=== PATIENT | female | born 1945 | race Caucasian/White ===

== ENCOUNTER 2025-08-14 22:19 | Emergency (ER) | payer MEDICARE, SELFPAY ==
--- OUTSIDE RECORDS SUMMARY | 2019-11-22 09:40 | XMS_ITS | Continuity of Care Document ---
Author Organization [facility] Address [address] [place] [address] Phone Care Team Providers Care Water Purifier Name Role Phone Jb Jain MD Unavailable Unavailable Allergies, Adverse Reactions, Alerts Substance Reaction Status Criticality No Known Drug Allergies Active No I nformation Medications Medication Instructions Dosage Effective Dates (start - stop) Status Comments OS-JAYSHREE 500-VIT D3 (unknown strength) qd Not Available - Active Lipitor 20 mg tablet once daily - Active amlodipine 5 mg tablet qd - Active meloxicam 7.5 mg tablet qd - Active Boniva 150 mg tablet once weekly - Active biotin 2,500 mcg capsule qd - Active omeprazole 20 mg capsule,delayed release BID - Active Alden 3-6-9 1,200 mg capsule qd - Active Tirosint 112 mcg capsule take 1 capsule by oral route every day 112 MCG - Active folic acid 1 mg tablet take 1 tablet by oral route every day 1 MG - Active Multivitamin 50 Plus tablet qd - Active Vitamin B-12 1,000 mcg tablet qd - Active venlafaxine 75 mg tablet take 1 tablet by oral route every day with food 75 MG - Active losartan 100 mg tablet take 1 tablet by oral route every day 100 MG - Active Procedures Procedure Date Intravitreal Injection Of Phamacologic A gent Ophthal DX Image Post Retina I And R Uni Or Bi Eylea 1mg OFFICE/OUTPATIENT VISIT, EST Intravitreal Injection Of Phamacologic A gent Ophthal DX Image Post Retina I And R Uni Or Bi Eylea 1mg Eye Exam Established Patient Intermediat e Intravitreal Injection Of Phamacologic A gent Ophthal DX Image Post Retina I And R Uni Or Bi Eylea 1mg Intravitreal Injection Of Phamacologic A gent Ophthal DX Image Post Retina I And R Uni Or Bi Eye Exam Established Patient Comprehensi ve 1 Or More Visits Eylea Sample Drug Intravitreal Injection Of Phamacologic A gent Ophthal DX Image Post Retina I And R Uni Or Bi Eylea 1mg Intravitreal Injection OCT Medical Eye Exam, Est Tx EYE SERVICE OR PROCEDURE Intravitreal Injection OCT Eylea Aflibercept Intravitreal Injection OCT Eylea Aflibercept Medical Eye Exam, Established 9 Intravitreal Injection OCT Eylea Aflibercept Fluorescein Angiography Intravitreal Injection Fundus Photos Eylea Aflibercept Medical Eye Exam, Est With Tx 8 Intravitreal Injection OCT Eylea Aflibercept Intravitreal Injection OCT Eylea Aflibercept Intravitreal Injection OCT Eylea Aflibercept Medical Eye Exam, Established 8 Intravitreal Injection OCT Eylea Aflibercept Fluorescein Angiography Intravitreal Injection Fundus Photos Eylea Aflibercept Medical Eye Exam, Est With Tx 8 Intravitreal Injection OCT Eylea Aflibercept Intravitreal Injection OCT Eylea Aflibercept Medical Eye Exam, Est With Tx 7 Intravitreal Injection OCT Eylea Aflibercept Medical Eye Exam, Established 7 Intravitreal Injection Ultrasound B OCT Eylea Aflibercept Medical Eye Exam, Established Intravitreal Injection Ultrasound B OCT Eylea Aflibercept Medical Eye Exam, Established 7 Intravitreal Injection Ultrasound B OCT Medical Eye Exam, Established With Tx EYE SERVICE OR PROCEDURE Intravitreal Injection Ultrasound B OCT Eylea Aflibercept Medical Eye Exam, Established 6 Intravitreal Injection Ultrasound B OCT Eylea Aflibercept Medical Eye Exam, Established With Tx No Intravitreal Injection OCT Eylea Aflibercept Intravitreal Injection OCT Eylea Aflibercept Medical Eye Exam, Established 6 Intravitreal Injection OCT Eylea Aflibercept Intravitreal Injection Fluorescein Angiography Fluorescein Angiography Fundus Photos Lucentis Ranibizumab .5 Medical Eye Exam, Established With Tx Ju Intravitreal Injection Intravitreal Injection Eylea Aflibercept OCT Intravitreal Injection Eylea Aflibercept OCT OCT Intravitreal Injection Eylea Aflibercept Intravitreal Injection OCT Eylea Aflibercept Medical Eye Exam, Established With Tx Ma Intravitreal Injection Fluorescein Angiography Fluorescein Angiography Fundus Photos Eylea Aflibercept Medical Eye Exam, Established With Tx No Fluorescein Angiography Oct Fluorescein Angiography Oct Fundus Photos Oct Est FU Visit High Oct OCT Medical Eye Exam, Established 5 OCT Office Visit, Moderate Intravitreal Injection OCT Eylea Aflibercept Intravitreal Injection OCT Eylea Aflibercept Medical Eye Exam, Established With Tx Ma Intravitreal Injection OCT Eylea Aflibercept Intravitreal Injection Eylea Aflibercept OCT Office Visit, Low Intravitreal Injection Oct Eylea Aflibercept Oct OCT Intravitreal Injection OCT Eylea Aflibercept OCT Intravitreal Injection Eylea Aflibercept Office Visit, Low ARMD Dilated Exam [facility] Counseling OCT Intravitreal Injection Eylea Aflibercept OCT Intravitreal Injection Eylea Aflibercept OCT Intravitreal Injection Eylea Aflibercept OCT Intravitreal Injection Eylea Aflibercept Office Visit, Low ARMD Dilated Exam [facility] Counseling OCT Intravitreal Injection Eylea Aflibercept OCT Intravitreal Injection Luc[facility]is Ranibizumab Office Visit, Low ARMD Dilated Exam [facility] Counseling OCT Intravitreal Injection Lucentis Ranibizumab OCT Intravitreal Injection Lucentis Ranibizumab Office Visit, Moderate ARMD Dilated Exam [facility] Counseling Fluorscein Angiography Fluorscein Angiography Fundus Photos Intravitreal Injection Lucentis Ranibizumab Office Visit, Low ARMD Dilated Exam [facility] Counseling OCT Intravitreal Injection Lucentis Ranibizumab Office Visit, Low ARMD Dilated Exam [facility] Counseling OCT Intravitreal Injection Lucentis Ranibizumab Office Visit, Moderate ARMD Dilated Exam [facility] Counseling OCT Intravitreal Injection Lucentis Ranibizumab Injection 13 Office Visit, Low ARMD Dilated Exam [facility] Counseling OCT Intravitreal Injection Lucentis Ranibizumab Injection 13 Office Visit, Low ARMD Dilated Exam [facility] Counseling OCT Intravitreal Injection Lucentis Ranibizumab Injection 13 OCT Intravitreal Injection Unclassified biologics Office Visit, Low ARMD Dilated Exam [facility] Counseling OCT Intravitreal Injection Unclassified biologics Office Visit, Moderate ARMD Dilated Exam [facility] Counseling OCT OCT Intravitreal Injection Unclassified biologics Office Visit, Low ARMD Dilated Exam [facility] Counseling OCT Intravitreal Injection Unclassified biologics Office Visit, Moderate ARMD Dilated Exam [facility] Counseling Fluorscein Angiography Fluorscein Angiography Fundus Photos Intravitreal Injection Unclassified biologics Advance Directives Directive Yes / No Effective Date File Name No Information Encounters Encounter Description Practice Location Reason(s) For Visit Diagnoses Date Provider Providers Copied on Encounter OFFICE/OUTPA TIENT VISIT, EST [facility], [address] [place], [address], tel: [phone] RVA Purdys macular degeneration (chief complaint)sta ble vision (chief complaint) Exdtve age-rel mclr degn, right eye, with actv chrdl neovasExudative age-rel mclr degn, left eye, with inactive scarOther retinal detachmentAge-rela harmony nuclear cataract, bilateralHTN Nov- 0 Cristobal Muhammad. [address], [address], [place], [place], [id number] , [place]. tel: [phone] Referring Provider: Jb Chavez, [address], [place], [address] . tel:[phone] [facility] Physician s, [address] [place], [address], [place] tel: [phone] RVA Augusto macular degeneration (chief complaint)flu ctuating vision (chief complaint) Exdtve age-rel mclr degn, right eye, with actv chrdl neovasOther retinal detachmentAge-rela harmony nuclear cataract, bilateralExudative age-rel mclr degn, left eye, with inactive scarHTN Dec-0 9 Cristobal Muhammad. [address], [address], [place], [place], [id number] , [place]. [phone] Referring Provider: Jb Chavez, [address], [place], [address] . tel:[phone] [facility], [address] [place], [address], [place] tel:[phone] RVA Augusto macular degeneration (chief complaint)imp rovement in floater (chief complaint) Exdtve age-rel mclr degn, right eye, with actv chrdl neovasOther retinal detachmentExudativ e age-rel mclr degn, left eye, with inactive scarAge-related nuclear cataract, bilateral Orgel Susan. [address], [address], [place], [place], [address] , [place]. tel:[phone] Referring Provider: Susan Chavez, [address], [place], [address] . tel:[phone] [facility], [address] [place], [address], [place] tel:[phone] RVA Purdys macular degeneration followup (chief complaint)sta ble (chief complaint) Exdtve age-rel mclr degn, right eye, with actv chrdl neovasOther retinal detachmentExudativ e age-rel mclr degn, left eye, with inactive scarAge-related nuclear cataract, bilateral 9 Orgel Susan. [address], [address], [place], [place], [address] , [place]. tel:[phone] Referring Provider: Susan Chavez, [address], [place], [address] . tel:[phone] [facility], [address] [place], [address], [place] tel:[phone] RVA Augusto macular degeneration (chief complaint)sta ble vision (chief complaint) Exdtve age-rel mclr degn, right eye, with actv chrdl neovasExudative age-rel mclr degn, left eye, with inactive scarOther retinal detachmentAge-rela harmony nuclear cataract, bilateral Napoleon- 9 Orgel Susan. [address], [address], [place], [place], [address] , [place]. tel:[phone] Referring Provider: Emir Smallwood, [address] [place], [address]. tel:[phone] [facility] Physician s, [address] [place], [place], [facility], [place] tel:[phone] RVA Purdys macular degeneration (chief complaint) Exdtve age-rel mclr degn, right eye, with actv chrdl neovasExudative age-rel mclr degn, left eye, with inactive scarOther retinal detachmentAge-rela harmony nuclear cataract, bilateral Dec- 9 Orgel Susan. [address], [address], [place], [place], [id number] , [place]. tel:[phone] Referring Provider: Emir Smallwood, [address] [place], [address]. tel:[phone] [facility] Physician s, [address] [place], [place], [facility], [place] tel:[phone] RVA Purdys macular degeneration (chief complaint)sta ble vision (chief complaint) Exdtve age-rel mclr degn, right eye, with actv chrdl neovasExudative age-rel mclr degn, left eye, with inactive scarOther retinal detachmentAge-rela harmony nuclear cataract, bilateral Mar-0 9 Orgel Susan. [address], [address], [place], [place], [address] , [place]. tel:[phone] Referring Provider: Emir Smallwood, [address] [place], [address]. tel:[phone] [facility] Physician s, [address] [place], [place], [facility], [place] tel:[phone] RVA Augusto macular degeneration (chief complaint) Exdtve age-rel mclr degn, right eye, with actv chrdl neovasExudative age-rel mclr degn, left eye, with inactive scarOther retinal detachmentAge-rela harmony nuclear cataract, bilateral Rakesh-- 9 Orgel Susan. [address], [address], [place], [place], [address] , [place]. tel:[phone] Referring Provider: Emir Smallwood, [place], [address]. tel:[phone] [facility] Physician s, [address] [place], [address], [place] tel:[phone] RVA Purdys macular degeneration (chief complaint) Exudative age-rel mclr degn, left eye, with inactive scarExdtve age-rel mclr degn, right eye, with actv chrdl neovasOther retinal detachmentAge-rela harmony nuclear cataract, bilateral - 8 Orgel Susan. [address], [address], [place], [place], [address] , [place]. tel:[phone] Referring Provider: [place], [address]. tel:[phone] [facility] Physician s, [address] [place], [address], [place] tel:[phone] RVA Purdys macular degeneration (chief complaint) Exudative age-related macular degeneration, bilateral, with active choroidal neovascularization Other retinal detachmentAge-rela harmony nuclear cataract, bilateral Oct-0 8- 8 Orgel Susan. [address], [address], [place], [place], [address] , [place]. tel:[phone] Referring Provider: [place], [address]. tel:[phone] [facility] Physician s, [address] [place], [address], [place] tel:[phone] RVA Purdys macular degeneration (chief complaint)dec reased vision (chief complaint)HTN (chief complaint) Exudative age-related macular degeneration, bilateral, with active choroidal neovascularization Other retinal detachmentVitreous hemorrhage, left eyeAge-related nuclear cataract, bilateral 8 Orgel Susan. [address], [address], [place], [place], [address] , [place]. tel:[phone] Referring Provider: Susan Chavez, [address], [place], [address] . tel:[phone] [facility], [address] [place], [place], [facility], [place] tel:[phone] RVA Augusto macular degeneration (chief complaint)see ing floaters (chief complaint)Add itional Information (chief complaint) Exudative age-related macular degeneration, bilateral, with active choroidal neovascularization Other retinal detachmentVitreous hemorrhage, left eyeAge-related nuclear cataract, bilateral 8 Orgel Susan. [address], [address], [place], [place], [address] , [place]. [phone] Referring Provider: Susan Chavez [address], [place], [address] . tel:[phone] [facility], [address] [place], [place], [facility], [place] tel:[phone] RVA Purdys macular degeneration (chief complaint)joycelyn rry vision (chief complaint)Add itional Information (chief complaint) Exudative age-related macular degeneration, bilateral, with active choroidal neovascularization Vitreous hemorrhage, left eyeOther retinal detachmentAge-rela harmony nuclear cataract, bilateral 8 Orgel Susan. [address], [address], [place], [place], [address] , [place]. tel:[phone] Referring Provider: Susan Chavez [address], [place], [address] . tel:[phone] [facility], [address] [place], [place], [facility], [place] tel:[phone] RVA Purdys macular degeneration (chief complaint)emmett aters (chief complaint)shira udy vision (chief complaint) Exudative age-related macular degeneration, bilateral, with active choroidal neovascularization Vitreous hemorrhage, left eyeOther retinal detachmentSecondar y pigmentary degeneration, bilateralAge-relat ed nuclear cataract, bilateral Apr-0 8 Orgel Susan. [address], [address], [place], [place], [address] , [place]. tel:[phone] Referring Provider: Susan Chavez [address], [place], [address] . tel:[phone] [facility], [address], [place], [address], [place] [phone] MALA Casas macular degeneration (chief complaint)gri d changes (chief complaint)Add itional Information (chief complaint) Other retinal detachmentVitreous hemorrhage, left eyeExudative age-related macular degeneration, bilateral, with active choroidal neovascularization Secondary pigmentary degeneration, bilateralAge-relat ed nuclear cataract, bilateral 8 Orgel Susan. [address], [address], [place], [place], [address] , [place]. tel:[phone] Referring Provider: Susan Chavez, [address], [place], [address] . tel:[phone] [facility], [address], [place], [address], [place] [phone] MALA Casas other retinal detachment (chief complaint)has vision now from middle down (chief complaint)fla sh in upper left corner (chief complaint) Other retinal detachmentVitreous hemorrhage, left eyeExudative age-related macular degeneration, bilateral, with active choroidal neovascularization Secondary pigmentary degeneration, bilateralAge-relat ed nuclear cataract, bilateral 7 Orgel Susan. [address], [address], [place], [place], [address] , [place]. tel:[phone] Referring Provider: Susan Chavez [address], [place], [address] . tel:[phone] [facility], [address] [place], [address], [place] tel:[phone] RVA Purdys macular degeneration (chief complaint)joycelyn rry vision (chief complaint) Vitreous hemorrhage, left eyeExudative age-related macular degeneration, bilateral, with active choroidal neovascularization Secondary pigmentary degeneration, bilateralAge-relat ed nuclear cataract, bilateralOther retinal detachment Orgel Susan. [address], [address], [place], [place], [address] , [place]. tel:[phone] Referring Provider: Susan Chavez, [address], [place], [address] . tel:[phone] [facility], [address] [place], [address], [place] [phone] MALA Casas vitreous hemorrhage (chief complaint)rep orts she still has limited vision (chief complaint)den ies any vision changes (chief complaint) Vitreous hemorrhage, left eyeExudative age-related macular degeneration, bilateral, with active choroidal neovascularization Secondary pigmentary degeneration, bilateralAge-relat ed nuclear cataract, bilateralExdtve age-rel mclr degn, right eye, with actv chrdl neovas 7 Orgel Susan. [address], [place], [place], [address] , [place]. tel:[phone] Other Provider: Tatum Dailey, [address] [place] [address], [address]. tel:[phone] erring Provider: Susan Chavez, [address], [place], [address] . tel:[phone] [facility], [address] [place], [address], [place] tel:[phone] RVA Purdys macular degeneration (chief complaint)Add itional Information (chief complaint)no change in vision (chief complaint) Exudative age-related macular degeneration, bilateral, with active choroidal neovascularization Vitreous hemorrhage, left eyeSecondary pigmentary degeneration, bilateralAge-relat ed nuclear cataract, bilateral 7 Orgel Susan. [address], [place], [place], [address] , [place]. [phone] Referring Provider: Susan Chavez, [address], [place], [address] . tel:[phone] [facility], [address] [place], [place], [facility], [place] tel: [phone] RVA Purdys macular degeneration (chief complaint)den ies vision changes (chief complaint)Add itional Information (chief complaint) Exudative age-related macular degeneration, bilateral, with active choroidal neovascularization Vitreous hemorrhage, left eyeSecondary pigmentary degeneration, bilateralAge-relat ed nuclear cataract, bilateral 7 Orgel Susan. [address], [place], [place], [address] , [place]. [phone] Referring Provider: Susan Chavez, [address], [place], [address] . tel:[phone] [facility], [address] [place], [place], [facility], [place] tel: [phone] RVA Purdys macular degeneration (chief complaint)sta ble but decreased vision (chief complaint)Add itional Information (chief complaint) Exudative age-related macular degeneration, bilateral, with active choroidal neovascularization Vitreous hemorrhage, left eyeSecondary pigmentary degeneration, bilateralAge-relat ed nuclear cataract, bilateral 7 Orgel Susan. [address], [place], [place], [address] , [place]. [phone] Referring Provider: Susan Chavez [address], [place], [address] . tel:[phone] [facility], [address] [place], [address], [place] tel:[phone] RVA Purdys macular degeneration (chief complaint)joycelyn rry vision (chief complaint)add itional information (chief complaint) Vitreous hemorrhage, left eyeExudative age-related macular degeneration, bilateral, with active choroidal neovascularization Drusen (degenerative) of macula, bilateralSecondary pigmentary degeneration, bilateralAge-relat ed nuclear cataract, bilateralExdtve age-rel mclr degn, left eye, with actv chrdl neovas Dec-0 6 Orgel Susan. [address], [address], [place], [place], [address] , [place]. tel:[phone] Referring Provider: Susan Chavez, [address], [place], [address] . tel:[phone] [facility], [address] [place], [address], [place] tel: [phone] RVA Purdys macular degeneration (chief complaint)fabienne den vision loss (chief complaint)___ _ (chief complaint) Vitreous hemorrhage, left eyeDrusen (degenerative) of macula, bilateralSecondary pigmentary degeneration, bilateralAge-relat ed nuclear cataract, bilateralExudative age-related macular degeneration, bilateral, with active choroidal neovascularization Jul- 6 Orgel Susan. [address], [place], [place], [address] , [place]. tel:[phone] Other Provider: Tatum Dailey, [address] [place], [address]. tel:[phone] erring Provider: Susan Chavez, [address], [place], [address] . tel:[phone] [facility], [address] [place], [address], [place] tel:[phone] RVA Purdys macular degeneration (chief complaint)sta ble vision (chief complaint)blo od pressure reading (chief complaint) Exudative age-related macular degeneration, bilateral, with active choroidal neovascularization Oct-0 3-201 6 Orgel Susan. [address], [address], [place], [place], [address] , [place]. tel:[phone] Referring Provider: Susan Chavez, [address], [place], [address] . tel:[phone] [facility], [address] [place], [address], [place] [phone] RVA Purdys macular degeneration (chief complaint)emmett aters (chief complaint)Blo od pressure reading (chief complaint) Exudative age-related macular degenerationDrusen (degenerative) of macula, bilateralSecondary pigmentary degeneration, bilateralAge-relat ed nuclear cataract, bilateral May- 6 Orgel Susan. [address], [address], [place], [place], [address] , [place]. [phone] Referring Provider: Susan Chavez, [address], [place], [address] . tel:[phone] [facility], [address] [place], [address], [place] [phone] RVA Purdys macular degeneration (chief complaint)sta ble vision (chief complaint)___ (chief complaint) Exudative age-related macular degenerationDrusen (degenerative) of macula, bilateralSecondary pigmentary degeneration, bilateralAge-relat ed nuclear cataract, bilateral Apr- 6 Orgel Susan. [address], [place], [place], [address] , [place]. tel:[phone] Referring Provider: Susan Chavez, [address], [place], [address] . tel:[phone] [facility], [address] [place], [address], [place] [phone] RVA Augusto macular degeneration (chief complaint)dec reased vision (chief complaint) Exudative age-related macular degenerationDrusen (degenerative) of macula, bilateralSecondary pigmentary degeneration, bilateralAge-relat ed nuclear cataract, bilateral Feb- 6 Orgel Susan. [address], [place], [place], [address] , [place]. tel:[phone] Referring Provider: Susan Chavez, [address], [place], [address] . tel:[phone] [facility], [address] [place], [address], [place] tel:[phone] MALA Casas ARMD (chief complaint)sta ble vision (chief complaint)Blo od pressure reading (chief complaint) Exudative age-related macular degeneration January- 9 6 Orgel Susan. [address], [place], [place], [address] , [place]. tel:[phone] Referring Provider: Susan Chavez, [address], [place], [address] . tel:[phone] [facility], [address] [place], [address], [place] tel:[phone] MALA Casas macular degeneration (chief complaint)rep orts no vision changes (chief complaint)172 /95 (chief complaint) Exudative age-related macular degenerationDrusen (degenerative) of macula, bilateralSecondary pigmentary degeneration, bilateralAge-relat ed nuclear cataract, bilateral January-0 2 6 Orgel Susan. [address], [place], [place], [address] , [place]. tel:[phone] Referring Provider: Susan Chavez, [address], [place], [address] . tel:[phone] [facility], [address] [place], [address], [place] tel:[phone] EVERARDOA Augusto ARMD (chief complaint)inc rease in vision (chief complaint)sta ble vision (chief complaint) Exudative age-related macular degeneration Apr-0 6 Orgel Suasn. [address], [place], [place], [address] , [place]. tel:[phone] Referring Provider: Susan Chavez [address], [place], [address] . tel:[phone] [facility], [address] [place], [place], [facility], [place] tel:[phone] RVA Purdys macular degeneration (chief complaint)dec reased vision (chief complaint)in office vitals (chief complaint) Exudative age-related macular degenerationDrusen (degenerative) of macula, bilateralSecondary pigmentary degeneration, bilateralAge-relat ed nuclear cataract, bilateral Mar-2 6 Orgel Susan. [address], [place], [place], [address] , [place]. tel:[phone] Referring Provider: Susan Chavez [address], [place], [address] . tel:[phone] CVP Physician s, [address] [place] [place], [facility], [place] tel:[phone] RVA Augusto vision problems (chief complaint)joycelyn rry vision (chief complaint)dis tortion in vision (chief complaint) Exudative age-related macular degenerationSecond opal pigmentary degeneration, bilateralAge-relat ed nuclear cataract, bilateralDrusen (degenerative) of macula, bilateral Nov-2 5 Orgel Susan. [address], [address], [place], [place], [address] , [place]. tel:[phone] Referring Provider: Susan Chavez [address], [place], [address] . tel:[phone] Est FU Visit High CVP Physician s, [address] [place], [address], [place] tel:[phone] RVA Purdys macular degeneration (chief complaint)veronica oing distortion (chief complaint) Exudative age-related macular degenerationRetina l neovascularization , unspecified, right eyeVitreous degeneration, bilateralSecondary pigmentary degeneration, bilateralAge-relat ed nuclear cataract, bilateral Oct-1 5 Orgel Susan. [address], [place], [place], [address] , [place]. tel:[phone] Referring Provider: Susan Chavez, [address], [place], [address] . tel:[phone] CVP Physician s, [address] [facility], [place], [address], [place] tel:[phone] RVA Augusto ARMD (chief complaint)sta ble vision (chief complaint)Blo od pressure reading (chief complaint) Exudative macular degeneration of retinaRetinal neovascularization nosSecondary pigmentary degeneration of retinaVitreous degenerationLens replaced by other means Orgel Susan. [address], [place], [place], [address] , [place]. [phone] Referring Provider: Susan Chavez [address], [place], [address] . tel:[phone] Office Visit, Moderate CVP Physician s, [address] [facility], [place], [address], [place] tel:[phone] RVA Augusto macular degeneration (chief complaint)BP 161/100 (chief complaint)den ies vision changes (chief complaint) Exudative macular degeneration of retinaRetinal neovascularization nosSecondary pigmentary degeneration of retinaVitreous degenerationLens replaced by other means 5 Orgel Susan. [address], [place], [place], [address] , [place]. tel:[phone] Specialist : Osvaldo Andres, [address], [place], [address]. tel:[phone] erring Provider: Susan hCavez [address] , [place], [address] . tel:[phone] CVP Physician s, [address] [place], [address], [place] tel:[phone] RVA Purdys macular degeneration (chief complaint)no changes (chief complaint)___ (chief complaint) Exudative macular degeneration of retina Nov-0 9- 5 Orgel Susan. [address], [place], [place], [address] , [place]. [phone] Referring Provider: Susan Chavez, [address] , [place], [address] . tel:[phone] CVP Physician s, [address] [place], [facility], [place] [phone] RVA Augusto macular degeneration (chief complaint)sta ble vision with injections (chief complaint) Exudative macular degeneration of retinaRetinal neovascularization nosSecondary pigmentary degeneration of retinaVitreous degenerationLens replaced by other means Nov-0 2- 5 Orgel Susan. [address], [address] , [place], [place], [address] , [place]. [phone] Referring Provider: Susan Chavez [address], [place], [address] . tel:[phone] CVP Physician s, [address] [place], [facility], [place] tel:[phone] RVA Augusto ARMD (chief complaint)sta ble vision (chief complaint)Blo od pressure reading (chief complaint) Exudative macular degeneration of retina Aug-0 8 4 Orgel Susan. [address], [place], [place], [address] , [place]. tel:[phone] Referring Provider: Susan Chavez, [address], [place], [address] . tel:[phone] Office Visit, Low CVP Physician s, [address] [place], [address], [place] tel: [phone] RVA Purdys ARMD (chief complaint)inc rease in vision (chief complaint)Blo od pressure reading (chief complaint) Exudative macular degeneration of retinaRetinal neovascularization nosSecondary pigmentary degeneration of retinaVitreous degenerationLens replaced by other means Dec-0 - 4 Orgel Susan. [address], [place], [place], [address] , [place]. tel: [phone] Referring Provider: Susan Chavez [address], [place], [address] . tel:[phone] CVP Physician s, [address] [place], [facility], [place] tel:[phone] RVA Purdys ARMD (chief complaint)emmett aters (chief complaint)Blo od pressure reading (chief complaint) Exudative macular degeneration of retina Oct-2 4 Orgel Susan. [address], [place], [place], [address] , [place]. tel: [phone] Referring Provider: Susan Chavez [address], [place], [address] . tel:[phone] CVP Physician s, [address] [place], [facility], [place] tel:[phone] RVA Purdys Exudative macular degeneration of retinaRetinal neovascularization nosSecondary pigmentary degeneration of retinaVitreous degenerationLens replaced by other means Oct-1 - 4 Orgel Susan. [address], [place], [place], [address] , [place]. tel:[phone] Referring Provider: Susan Chavez, [address], [place], [address] . tel:[phone] CVP Physician s, [address] [place], [facility], [place] tel:[phone] RVA Purdys ARMD (chief complaint)vis ion loss (chief complaint)VIT ALS (chief complaint) No Information 4 Orgel Susan. [address], [place], [place], [address] , [place]. tel:[phone] Referring Provider: Susan Chavez, [address] , [place], [address] . tel:[phone] Office Visit, Low CVP Physician s, [address] [place], [facility], [place] tel:[phone] RVA Purdys ARMD (chief complaint)sta ble vision (chief complaint)Vit als: (chief complaint) Exudative macular degeneration of retinaRetinal neovascularization nosSecondary pigmentary degeneration of retinaVitreous degenerationLens replaced by other means 4 Orgel Susan. [address], [address] , [place], [place], [address] , [place]. tel:[phone] Referring Provider: Susan Chavez, [address] , [place], [address] . tel:[phone] CVP Physician s, [address] [place], [facility], [place] tel:[phone] RVA Purdys ARMD (chief complaint)sta ble vision (chief complaint)Blo od pressure reading (chief complaint) Exudative macular degeneration of retinaRetinal neovascularization nosSecondary pigmentary degeneration of retinaVitreous degenerationLens replaced by other means 4 Orgel Susan. [address], [address] , [place], [place], [address] , [place]. tel:[phone] Referring Provider: Susan Chavez, [address] , [place], [address] . tel:[phone] CVP Physician s, [address] [place], [facility], [place] tel:[phone] RVA Purdys ARMD (chief complaint)sta ble vision (chief complaint)Vit als (chief complaint) No Information 3 0 4 Orgel Susan. [address], [place], [place], [address] , [place]. tel:[phone] Referring Provider: Susan Chavez, [address], [place], [address] . tel:[phone] CVP Physician s, [address] [place], [facility], [place] tel:[phone] RVA Purdys ARMD (chief complaint)sta ble (chief complaint) No Information 0 4 Orgel Susan. [address], [address] , [place], [place], [address] , [place]. tel:[phone] Referring Provider: Susan Chavez, [address] , [place], [address] . tel:[phone] Office Visit, [facility] CVP Physician s, [address] [place], [facility], [place] tel:[phone] RVA Purdys ARMD (chief complaint)emmett aters (chief complaint)vit als (chief complaint) Exudative macular degeneration of retinaRetinal neovascularization nosSecondary pigmentary degeneration of retinaVitreous degenerationLens replaced by other means 0 2 4 Orgel Susan. [address], [address] , [place], [place], [address] , [place]. tel:[phone] Referring Provider: Susan Chavez, [address], [place], [address] . tel:[phone] CVP Physician s, [address] [place], [facility], [place] [phone] RVA Augusto ARMD (chief complaint)dis tortion (chief complaint) No Information 2 4 Orgel Susan. [address], [address] , [place], [place], [address] , [place]. tel:[phone] Referring Provider: Susan Chavez, [address], [place], [address] . tel:[phone] Office Visit, Low CVP Physician s, [address] [place], [address], [place] tel:[phone] RVA Purdys ARMD (chief complaint)sta ble vision (chief complaint)blo od pressure (chief complaint) Exudative macular degeneration of retinaRetinal neovascularization nosSecondary pigmentary degeneration of retinaVitreous degenerationLens replaced by other means Dec- 4 Orgel Susan. [address], [place], [place], [address] , [place]. tel:[phone] Referring Provider: Susan Chavez, [address], [place], [address] . tel:[phone] CVP Physician s, [address] [place], [address], [place] tel:[phone] RVA Purdys Exudative macular degeneration of retinaRetinal neovascularization nosVitreous degenerationSecond opal pigmentary degeneration of retinaPseudophakia Nov- 4 Orgel Susan. [address], [place], [place], [address] , [place]. tel:[phone] Referring Provider: Susan Chavez, [address], [place], [address] . tel:[phone] Office Visit, Moderate CVP Physician s, [address] [place], [address], [place] tel:[phone] RVA Purdys Exudative macular degeneration of retinaLens replaced by other meansRetinal neovascularization nosVitreous degenerationSecond opal pigmentary degeneration of retina Nov- 3 4 Orgel Susan. [address], [place], [place], [address] , [place]. tel:[phone] Specialist : Osvaldo Andres, [address], [place], [address]. tel:[phone] erring Provider: Susan Chavez, [address] , [place], [address] . tel:[phone] Office Visit, Low CVP Physician s, [address] [place], [address], [place] tel:[phone] RVA Purdys Exudative macular degeneration of retinaLens replaced by other meansSecondary pigmentary degeneration of retinaRetinal neovascularization nosVitreous degeneration 0 4 Orgel Susan. [address], [address] , [place], [place], [address] , [place]. [phone] Referring Provider: Susan Chavez, [address] , [place], [address] . tel:[phone] Office Visit, Low CVP Physician s, [address] [place], [address], [place] tel:[phone] RVA Purdys Exudative macular degeneration of retinaRetinal neovascularization nosSecondary pigmentary degeneration of retinaVitreous degenerationLens replaced by other means 3 Orgel Susan. [address], [address] , [place], [place], [address] , [place]. [phone] Referring Provider: Susan Chavez, [address] , [place], [address] . tel:[phone] Office Visit, Moderate CVP Physician s, [address] [place], [address], [place] tel:[phone] RVA Purdys Exudative macular degeneration of retinaSecondary pigmentary degeneration of retinaRetinal neovascularization nosVitreous degenerationLens replaced by other means Oct-0 3 Orgel Susan. [address], [place], [place], [address] , [place]. tel:[phone] Specialist : Osvaldo Andres, [address], [place], [address]. tel:[phone] erring Provider: Susan Chavez, [address] , [place], [address] . tel:[phone] Office Visit, Low CVP Physician s, [address] [place], [address], [place] tel:[phone] RVA Purdys Secondary pigmentary degeneration of retinaRetinal neovascularization nosLens replaced by other meansExudative macular degeneration of retinaVitreous degeneration 3 Orgel Susan. [address], [place], [place], [address] , [place]. tel:[phone] Specialist : Osvaldo Andres, [address] [place] [address] [address], [place], [address]. tel:[phone] erring Provider: Susan Chavez, [address], [place], [address] . tel:[phone] Office Visit, Low CVP Physician s, [address] [place], [address], [place] tel:[phone] RVA Augusto Exudative macular degeneration of retinaRetinal neovascularization nosSecondary pigmentary degeneration of retinaVitreous degenerationPseudo phakia 3 Orgel Susan. [address], [place], [place], [address] , [place]. tel:[phone] Referring Provider: Susan Chavez, [address], [place], [address] . tel:[phone] CVP Physician s, [address] [place], [address], [place] tel:[phone] RVA Augusto Lens replaced by other meansVitreous degenerationRetina l neovascularization nosExudative macular degeneration of retinaSecondary pigmentary degeneration of retina Nov- 3 Orgel Susan. [address], [place], [place], [address] , [place]. tel:[phone] Referring Provider: Susan Chavez, [address], [place], [address] . tel:[phone] Office Visit, Low CVP Physician s, [address] [place], [address], [place] tel:[phone] RVA Augusto Vitreous degenerationSecond opal pigmentary degeneration of retinaExudative macular degeneration of retinaRetinal neovascularization nosPseudophakia 3 Orgel Susan. [address], [place], [place], [address] , [place]. tel:[phone] Referring Provider: Susan Chavez, [address], [place], [address] . tel:[phone] Office Visit, Moderate CVP Physician s, [address] [place], [address], [place] tel:[phone] RVA Augusto Exudative macular degeneration of retinaVitreous degenerationRetina l neovascularization nosSecondary pigmentary degeneration of retinaPseudophakia 3 Orgel Susan. [address], [place], [place], [address] , [place]. tel:[phone] Referring Provider: Susan Chavez, [address], [place], [address] . tel:[phone] CVP Physician s, [address] [place], [address], [place] tel:[phone] RVA Purdys Retinal neovascularization nosVitreous degenerationSecond opal pigmentary degeneration of retinaExudative macular degeneration of retinaSenile nuclear sclerosis 2 Orgel Susan. [address], [place], [place], [address] , [place]. tel:[phone] CVP Physician s, [address] [place], [address], [place] tel:[phone] RVA Augusto Vitreous degenerationExudat margarita macular degeneration of retinaSenile nuclear sclerosisSecondary pigmentary degeneration of retinaRetinal neovascularization nos Jul- 2 Orgel Susan. [address], [place], [place], [address] , [place]. tel:[phone] CVP Physician s, [address] [place], [address], [place] tel:[phone] RVA Purdys Secondary pigmentary degeneration of retinaVitreous degenerationRetina l neovascularization nosExudative macular degeneration of retinaSenile nuclear sclerosis May- 2 Orgel Susan. [address], [place], [place], [address] , [place]. tel:[phone] Referring Provider: Susan Chavez, [address], [place], [address] . tel:[phone] Office Visit, Low CVP Physician s, [address] [place], [address], [place] tel: [phone] RVA Purdys Secondary pigmentary degeneration of retinaVitreous degenerationSenile nuclear sclerosisExudative macular degeneration of retinaRetinal neovascularization nos 2 Orgel Susan. [address], [place], [place], [address] , [place]. tel: [phone] Referring Provider: Susan Chavez, [address], [place], [address] . tel:[phone] CVP Physician s, [address] [place], [address], [place] tel:[phone] RVA Purdys Exudative macular degeneration of retinaSenile nuclear sclerosisRetinal neovascularization nosSecondary pigmentary degeneration of retinaVitreous degeneration 2 Orgel Susan. [address], [place], [place], [address] , [place]. tel:[phone] Office Visit, Moderate CVP Physician s, [address] [place], [address], [place] tel: [phone] RVA Augusto No Information 2 Cheryl Davis. [address], [place], [place], [address] , [place]. tel:[phone] Referring Provider: Susan Luna Poli Chavez [address], [place], [address] . tel:[phone] Family History Family Member Type Diagnosis Age At Onset Father Problem (finding) stroke Brother Problem (finding) Cancer Immunizations Vaccine Date Status Comments Influenza, seasonal, injectable, 3 yrs or older (36 mos+) FluLaval administered Source: Source Unspe cified Influenza, seasonal, injectable, 3 yrs or older (36 mos+) FluLaval administered Source: Other Provid er Influenza, seasonal, injectable, 3 yrs or older (36 mos+) FluLaval administered Source: Other Provid er Influenza, seasonal, injectable, 3 yrs or older (36 mos+) FluLaval pending Source: New Immuniza tion Record Payers Payer name Insurance type Covered republican ID Authoriza tion(s) No Information Social History Type Description Quantity Date Captured Comments Alcohol Use Details rum 1 shot weekly Caffeine Use Details coffee/tea 1-2 cups per day 20 Tobacco Use Status Ex-cigarette smoker 020 Smoking Status Former smoker Smoking Tobacco Use Details Cigarette: Age Started: 15, Age Stopped: 60, Years Used 44 Cigarette: 0.05 Cigarettes per day, Pack Year: 0.11 [id number] SexFemale Vital Signs Date / Time: Height Weight BMI Pulse Rate Blood Pressure Temperature Respiratory Rate Body Surface Area Head Circumference Head Circ. Percentile Wt./Gustavo. Percentile BMI percentile Pulse Ox Inhaled Ox 2:59 PM 114/64 mm[Hg] Chief Complaint And Reason For Visit From encounter dated '11/22/2019 14:40'. macular degeneration (chief complaint). Description: The 74 year old female presents for evaluationof macular degeneration in both eyes. stable vision (chief complaint). Description: The patient reports stable vision in both eyes since last visit 3 months ago. It occurs constantly. It affects both near and distance vision. The symptomis all of the time. In addition, the condition is associated with daily activities and chores. Patient denies flashes and floaters. Patient reports a constant darker grayness in upper portion of vision x 2 years (unchanged in the left eye. Reason For Referral Reason For Referral No Information Plan Of Treatment Date Type Action Status Goal Tobacco cessation counseling completed Goal Tobacco cessation counseling completed Goal Tobacco cessation counseling completed Goal Tobacco cessation counseling completed Goal Tobacco cessation counseling completed Goal Tobacco cessation counseling completed Goal Tobacco cessation counseling completed Goal Tobacco cessation counseling completed Unknown Immunization Influenza, seaso nal, injectable, 3 yrs or older (36 mos+) FluLaval ordered History Of Present Illness Encounter Date Complaint History Of Prese nt Illness macular degeneration The 74 year old female presents for evaluation of macular degeneration in both eyes. stable vision The patient repo rts stable vision in both eyes since last visit 3 months ago. It occurs constantly. It affects both near and distance vision. The symptom is all of the time. In addition, the condition is associated with daily activities and chores. Patient denies flashes and floaters. Patient reports a constant darker grayness in upper portion of vision x 2 years (unchanged in the left eye. macular degeneration The 74 year old female presents for evaluation of macular degeneration in both eyes. fluctuating vision The patient r eports fluctuating vision in the right eye x 3 months. The onset was gradual. It affects both near and distance vision. The symptom is intermittently. The condition is mild. In addition, the condition is associated with daily activities and chores. Patient denies flashes. Patient reports a constant clear floater in the right eye over a year affecting the vision slightly. Patient reports she can see up close but more of a distant things are warped and darker in the left eye x 2 years. macular degeneration The 74 year old female presents for evaluation of macular degeneration in both eyes. improvement in floater The patie nt reports an improvement in the floater in the right eye x 8 weeks (has gotten thinner/like a light shadow). The onset was gradual. Vision is not affected. The symptom is all of the time. The condition is mild. In addition, the condition is associated with daily activities and chores. Patient denies flashes. Patient reports blurry vision in the left eye x 2 years that is constant and affecting all distances of vision. stable The patient stat es stable vision in both eyes, since her last visit. Patient states she notices a new cast in her left eye. macular degeneration followup Th e 73 year old female presents for evaluation of macular degeneration followup in the right eye and left eye. stable vision The patient repo rts stable vision in both eyes since last visit about 8 weeks ago. It occurs all the time. It affects both near and far vision. In addition, the condition is associated with daily activity and chores. Patient denies flashes and floaters. macular degeneration The 73 year old female presents for macular degeneration in both eyes. macular degeneration The 73 year old female presents for evaluation of macular degeneration in both eyes. The patient is unaware of any vision changes since last exam 6 weeks ago. It affects both near and far vision. The symptom is constant. In addition, the condition is associated with daily activity and chores. Patient denies eye pain and flashes. stable vision The patient repo rts stable vision in the right eye since last visit about 7 weeks ago. It occurs all the time. It affects both near and far vision. In addition, the condition is associated with daily activity and chores. Patient denies flashes and floaters. Patient reports a dark cloud on the top half of the left eye due to a blood hemorrhage. macular degeneration The 73 year old female presents for macular degeneration in both eyes. macular degeneration The 73 year old female presents for evaluation of macular degeneration in both eyes. The patient reports stable vision in both eyes since last exam 6 weeks ago. It affects both near and far vision. The symptom is constant. In addition, the condition is associated with daily activity and chores. Patient denies eye pain and flashes. macular degeneration The 73 year old female presents for evaluation of macular degeneration in the right eye and left eye. The patient reports stable vision in both eyes since last exam 6 weeks ago. It affects both near and far vision. The symptom is constant. Patient denies eye pain and flashes. macular degeneration The 73 year old female presents for evaluation of macular degeneration in the right eye and left eye. The patient is unaware of any vision changes in both eyes. It affects both near and far vision. The symptom is constant. In addition, the condition is associated with daily activity and chores. Patient denies eye pain and flashes. The patient later relates that she feels the darkness on the left eye is causing more difficulty reading with right eye. HTN BP in office tod ay was 118/84. decreased vision The patient com plains that her vision continues to gradually decrease over time. She states it always seems a shade weaker when she comes here OD. Left eye vision has been limited for a while now. No eye pain OU. macular degeneration This 72 yea r old female presents for evaluation of macular degeneration in both eyes. Monocular patient. Additional Information 137/94 seeing floaters The patient comp lains of seeing floaters in the left > right. It started about 3 weeks ago and the onset was gradual. It affects both near and far vision and the symptom is frequent. It occurs with no pattern and the condition is moderate to severe. The patient denies flashes. macular degeneration The 72 year old female presents for evaluation of macular degeneration in the right eye and left eye. blurry vision The patient note s stable blurry vision in the left > right since her last visit 6 weeks ago. The onset was gradual. It affects both near and far vision. The symptom is constant. It occurs all the time. The condition is moderate. The condition is described as fuzzy vision. In addition, the condition is associated with daily activity and chores. Additional Information Additiona l Information: BP 138/99. macular degeneration The 72 year old female presents for evaluation of macular degeneration in the right eye and left eye. cloudy vision The patient repo rts cloudy vision in the left eye. It started over 1 year ago. The onset was sudden. It affects both near and far vision. The symptom is constant. The condition is severe. In addition, the condition is associated with daily activity and chores. The patient denies flashes and floaters. floaters The patient repo rts floaters in the right eye for years. The onset was gradual. Vision is not affected. The symptom is intermittent. The condition is mild. In addition, the condition is associated with daily activity and chores. The patient denies flashes. macular degeneration The 72 year old female presents for evaluation of macular degeneration in the right eye and left eye. Additional Information Patients blood pressure today was 124/64. grid changes The patient comp lains of mild grid changes in the right eye and left eye. It started about 1 week ago, It's noted as being constant. The patient denies flashes, floaters. macular degeneration The 72 year old female presents for evaluation of macular degeneration in the right eye and left eye. Last Eylea injection OD was 07/26/17. flash in upper left corner The p atient reports a flash in upper left corner in the left eye (occurs at least once daily). It started about 1 month ago. The onset was sudden. Vision is not affected. The symptom is intermittent. The condition is mild. In addition, the condition is associated with daily activity and chores. The patient denies floaters. Patient reports she has a hair like floater in vision that is constant not affecting vision x 8 weeks. has vision now from middle down The patient reports that she has vision now from middle down in the left eye. It started about 6 weeks ago . The onset was gradual. It affects near vision. The symptom is constant. The condition is improving. In addition, the condition is associated with daily activity and chores. Patient reports frommiddle up the vision is still blurry. other retinal detachment The 72 year old female presents for evaluation of other retinal detachment in the left eye with vitreous hemorrhage. Also, AMD in both eyes. blurry vision The patient comp lains of blurry vision in the left > right. It started about 2 months ago. The onset was gradual. It affects both near and far vision. The symptom is constant. It occurs all the time. The condition is moderate. The condition is described as fuzzy vision. In addition, the condition is associated with daily activity and chores. macular degeneration The 72 year old female presents for evaluation of macular degeneration in the right eye and left eye and VH OS. denies any vision changes The vonnie meléndez denies any vision changes in the right eye, over the past 2 months. The patient denies flashes and floaters or pain. reports she still landaverde s limited vision The patient reports she still has limited vision in the left eye. It started about 2 years ago . It affects both near and far vision. The symptom is constant. The condition is severe. vitreous hemorrhage The 71 year old female presents for evaluation of vitreous hemorrhage in the left eye. macular degeneration The 71 year old female presents for evaluation of macular degeneration in the right eye and left eye. Additional Information Patient's blood pressure is 133/80. no change in vision Patient lefty es any significant changes in vision of either eye since the last exam and treatment. Additional Information Patient's blood pressure is 118/70. denies vision changes Patient fe els that there is no significant changes in the vision of her right eye. Patient states that the vision in the left has remained unchanged. Patient has started new HTN medications but did not bring list. macular degeneration The 71 year old female presents for evaluation of macular degeneration in the right eye and left eye. Additional Information Patient's blood pressure is 110/72.Patient is also on new medication for rapid heart beat but is unsure of the names. Couldn't verify current medications. stable but decreased vision Kiana ent states that although her vision is diminished in the left eye >> right eye, she feels there hasn't been any signficant changes. Patient does note occasional floaters OS and that sometimes she can see the lights in her house with that eye very clearly; but says 'its been like this'. macular degeneration The 71 year old female presents for evaluation of macular degeneration in the right eye and left eye. additional information Patient's blood pressure is 150/80. Patient has been having her blood pressure closely monitored by her PCP and is starting an unknown medication, took it this morning and has noticed an immediate improvement. Patient does not know the name of the medication. blurry vision Patient complain s that the vitreous hemorrage in her left eye has not cleared up at all in the past week. Patient says that occasionally she can see 'specks of light' through the blood but not clearly enough to focus the image. macular degeneration The 71 year old female presents for evaluation of macular degeneration in the right eye and left eye. B P 171/104 sudden vision loss The patient c omplains of sudden vision loss in the left eye. It started about 2 days ago . The onset was sudden. It affects vision nasally. The symptom is constant. It occurs all the time. The condition is severe and limiting patient's ability to read. The condition is described as dark and started after vomitting Wednesday. In addition, the condition is associated with daily activity and chores. The patient denies flashes. macular degeneration The 71 year old female presents for evaluation of macular degeneration in the right eye and left eye. blood pressure reading blood pre ssure reading 161/101 stable vision The patient stat es of stable vision in both eyes. It started about 1 week ago . The symptom is constant. It occurs all the time. In addition, the condition is associated with daily activity and chores. The patient denies eye pain, flashes, change in vision, floaters. macular degeneration The 71 year old female presents for evaluation of macular degeneration in both eyes. Blood pressure reading Blood pre ssure reading was 160/99. floaters The patient comp lains of floaters in the right > left for years. The onset was sudden. Vision is not affected. The symptom is intermittent. The condition is stable. In addition, the condition is associated with daily activity and chores. The patient denies flashes. macular degeneration The 71 year old female presents for an evaluation of macular degeneration in both eyes. BP 1 52/97 stable vision The patient repo rts stable vision in both eyes since her last exam 7 weeks ago . It affects both near and far vision. The symptom is constant. It occurs always. The condition is not any better. In addition, the condition is associated with daily activity and chores. The patient denies decreased vision. macular degeneration The 70 year old female presents for evaluation of macular degeneration decreased vision The patient com plains of decreased vision in both eyes that started about 4 days ago. Patient states that door frames are wavy. macular degeneration The 70 year old female presents for evaluation of macular degeneration in both eyes. Blood pressure reading Blood pre ssure reading was 158/92. stable vision Patient states t he vision has been stable in both eyes since her last visit 1 week ago that is constant in all activities. Patient denies flashes. ARMD The 70 year old female presents for an evaluation of ARMD in both eyes. 172/95 BP 172/95 reports no vision changes The vonnie meléndez reports no vision changes in both eyes since her last visit 1 month ago . macular degeneration The 70 year old female presents for evaluation of macular degeneration in both eyes. stable vision Patient states t he vision has been stable in the left eye since her last visit 2 weeks ago that is constant in all activities. Blood pressure reading was 161/85. increase in vision The patient r eports of an increase in vision in the right eye. It started about 2 weeks ago . The onset was gradual. The symptom is constant. The condition is improving. In addition, the condition is associated with reading. ARMD The 70 year old female presents for an evaluation of ARMD in both eyes. decreased vision The patient rep orts right eye decreased reading vision for the last month. The change has been gradual but is significant. She describes the right eye vision and grid as dark in the center. She denies left eye vision and grid changes. No flashes or eye pain in both eyes. She reports the same floaters in both eyes. in office vitals BP today in off ice was 144/90. macular degeneration This 70 yea r old female presents for evaluation of macular degeneration in both eyes. blurry vision The patient note s blurry vision in the left eye. It started about 3 weeks ago. The onset was sudden. It affects both near and far vision. The symptom is constant. The condition is severe. In addition, the condition is associated with daily activity and chores. Blood pressure reading was 150/82. Patient states she did get new glasses in 06/2015. distortion in vision The patient reports distortion in vision in the left eye. It started about 3 weeks ago . The onset was sudden. It affects both near and far vision. The symptom is constant. The condition is mild. In addition, the condition is associated with daily activity and chores. vision problems The 70 year old female presents for vision problems in the left eye. S/P Eylea in both eyes for ARMD. Last injection in left eye was 11/19/2014 and right eye on 11/12/2014. ongoing distortion The patient r eports ongoing distortion in the right eye over the last 6 weeks. It affects near and far vision. The symptom is constant. The condition is described as mild distortion, causing double images when both eyes are open. macular degeneration The 70 year old female presents for evaluation of macular degeneration in the right eye and left eye. Blood pressure reading Blood pre ssure reading 132/97. stable vision Patient states t he vision has been stable in both eyes since her last visit 8 weeks ago that is constant in all activities. ARMD The 69 year old female presents for an evaluation of ARMD in both eyes. denies vision changes The patien t denies vision changes in both eyes. It started about 3 months ago . It affects both near and far vision. The symptom is constant. It occurs when focusing. The condition is stable. In addition, the condition is associated with daily activity and chores. BP 161/100 The patient's BP 161/100 macular degeneration The 69 year s old female presents for evaluation of macular degeneration in both eyes. BP 1 40/81 no changes macular degeneration The 69 Year old female presents for evaluation of macular degeneration stable vision with injections Th e patient reports stable vision with injections in the right eye and left eye. It affects both near and far vision. The symptom is constant. It occurs all the time. The condition is stable. macular degeneration The 69 Year old female presents for evaluation of macular degeneration in the right eye and left eye. Blood pressure reading Blood pre ssure reading was 151/85. stable vision Patient states t he vision has been stable in both eyes since her last visit 1 week ago that is constant in all activities. ARMD The 69 year old female presents for an evaluation of ARMD in both eyes. Blood pressure reading Blood pre ssure reading was 158/85. increase in vision The patient r eports of an increase in vision in the right eye. It started about 5 weeks ago . The onset was gradual. It affects both near and far vision. The symptom is constant. The condition is improving. In addition, the condition is associated with all activity. ARMD The 69 year old female presents for an evaluation of ARMD in both eyes. Blood pressure reading Blood pre ssure reading was 139/78. floaters The patient comp lains of floaters in both eyes. Has had floaters for years. The onset was gradual. Vision is not affected. The symptom is intermittent. The condition is mild. In addition, the condition is associated with all activity. The patient denies flashes. ARMD The 69 year old female presents for an evaluation of ARMD in both eyes. VITALS Blood pressure t alexandra 140/86. vision loss The patient comp lains of vision loss in the right eye and left ey for years. The vision is affected both near and far. The symptom is intermittent. It occurs with no pattern. The condition is stable. In addition, the condition is associated with all activity. JEOVANY Olivas is a 68 Year old female that presents for a folllow up with a history of ARMD in the right eye and left eye. Vitals: Vitals: BP 132/8 8. stable vision The patient repo rts stable vision in the right eye and left eye since her last visit about 3 week(s) ago . It affects both near and far vision. The symptom is constant. It occurs all the time. The condition is stable. In addition, the condition is associated with daily activity and chores. The patient denies change in vision. ARMD The 68 Year old female presents for evaluation of ARMD in the right eye and left eye. Blood pressure reading Blood pre ssure reading was 152/94. stable vision Patient states t he vision has been stable in both eyes since her last visit 4 weeks ago that is constant in all activities. Patient denies flashes or floaters. Also, she did miss her last appointment due to having a cold. ARMD The 68 year old female presents for an evaluation of ARMD in both eyes. Vitals Blood pressure t his morning 122/74. stable vision The patient repo rts no significant visual changes since previous visit 02/19/14. JEOVANY Olivas is a 68 year old female that presents for a follow up with a history of ARMD in the right eye and left eye. stable The patient lefty es any significant visual changes since previous visit 02/12/14. JEOVANY Olivas is a 68 year old female presents for evaluation of ARMD in the right eye and left eye. vitals Blood pressure t alexandra is 124/78. The patient reports no significant visual changes since previous visit 01/08/14. Patient underwent colonoscopy on wednesday. floaters The patient comp lains of floaters in the right eye and left eye for years. The onset was sudden. It affects both near and far vision. The symptom is intermittent. It occurs doing close work. The condition is mild. The condition is described as seeing floaters. In addition, the condition is associated with reading. JEOVANY Olivas is a 68 year old female that presents for a follow up with a history of ARMD in the right eye and left eye. distortion The patient comp lains of distortion in the left eye. It started about 1 week(s) ago . The onset was sudden. It affects the left eye. The symptom is constant. It occurs all the time. The condition is moderate. The condition is described as distorted. In addition, the condition is associated with all activity. JEOVANY Olivas is a 68 year old female that presents for a follow up with a history of ARMD in the right eye and left eye. blood pressure BP 148/98. stable vision The patient repo rts stable vision in the right eye and left eye since her last visit about 5 week(s) ago . It affects both near and far vision. The symptom is constant. It occurs all the time. The condition is stable. In addition, the condition is associated with daily activity and chores. The patient denies change in vision. 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, left eye, with inactive scar Impression/Plan Related to Exdtv e age-rel mclr degn, right eye, with actv chrdl neovas Return in 10-12 week (s) with Jb Jain MD for follow up, OCT, possible Eylea OD Related to Exdtve age-rel mclr degn, right eye, with actv chrdl neovas Impression/Plan 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, left eye, with inactive scar Impression/Plan Related to HTN Impression/Plan Related to Exdtv e age-rel mclr degn, right eye, with actv chrdl neovas Impression/Plan Related to Other retinal detachment Impression/Plan Related to Age-r elated nuclear cataract, bilateral Impression/Plan Related to Exdtv e age-rel mclr degn, right eye, with actv chrdl neovas Impression/Plan Related to Other retinal detachment Impression/Plan 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, left eye, with inactive scar Impression/Plan Related to Age-r elated nuclear cataract, bilateral Impression/Plan Related to Age-r elated nuclear cataract, bilateral Impression/Plan 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, left eye, with inactive scar Impression/Plan Related to Other retinal detachment Impression/Plan Related to Exdtv e age-rel mclr degn, right eye, with actv chrdl neovas Impression/Plan Related to Exdtv e age-rel mclr degn, right eye, with actv chrdl neovas Impression/Plan Related to Age-r elated nuclear cataract, bilateral Impression/Plan Related to Other retinal detachment Impression/Plan 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, left eye, with inactive scar Impression/Plan Related to Exdtv e age-rel mclr degn, right eye, with actv chrdl neovas Impression/Plan Related to Age-r elated nuclear cataract, bilateral Impression/Plan Related to Other retinal detachment Impression/Plan 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, left eye, with inactive scar Impression/Plan 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, left eye, with inactive scar Impression/Plan Related to Exdtv e age-rel mclr degn, right eye, with actv chrdl neovas Impression/Plan Related to Age-r elated nuclear cataract, bilateral Impression/Plan Related to Other retinal detachment Impression/Plan Related to Exdtv e age-rel mclr degn, right eye, with actv chrdl neovas Impression/Plan Related to Age-r elated nuclear cataract, bilateral Impression/Plan Related to Other retinal detachment Impression/Plan 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, left eye, with inactive scar Impression/Plan 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 Luna for follow up exam with OCT and possible Eylea. Impression/Plan - Re gular follow up appointments with the patient's comprehensive eye doctor was again recommended, to monitor the patients cataract for progression. Related to Age-related nuclear cataract, bilateral Impression/Plan - Resolved Relat ed to Vitreous hemorrhage, left eye Impression/Plan - Qu estionable exudative detachment secondary to patients massive subretinal hemorrhage. Treatment options were discussed with the patient. However, due to poor visual prognosis because of the PVR, we will hold off on treatment. We will continue to monitor. Related to Other retinal detachment Impression/Plan - Ba sed on today's exam findings and interpretation of testing, continued anti-VEGF treatment for Exudative Age Related Macular Degeneration was again recommended and discussed with the patient. The risks, benefits, and alternatives were reviewed. The patient wishes to continue and received an intravitreal injection of Eylea OD today. We will maintain dosing intervals at 6 weeks. The patient tolerated the procedure well and has been instructed to call immediately with the onset of severe pain or visual loss. The patient was strongly advised on the importance of keeping up with current treatment schedule. The patient will continue following an Amsler grid daily and the use of the Age Related Eye Disease Study vitamins. The patient has decided not to proceed with further injections OS. Related to Exudative age-related macular degeneration, bilateral, with active choroidal neovascularization Follow up - Return i n [address] Luna for follow up exam with OCT and possible Eylea. Impression/Plan - Re gular follow up appointments with the patient's comprehensive eye doctor was again recommended, to monitor the patients cataract for progression. Related to Age-related nuclear cataract, bilateral Impression/Plan - Ba sed on today's exam findings and interpretation of testing, continued anti-VEGF treatment for Exudative Age Related Macular Degeneration was again recommended and discussed with the patient. The risks, benefits, and alternatives were reviewed. The patient wishes to continue and received an intravitreal injection of Eylea OD today. We will maintain dosing intervals at 6 weeks. The patient tolerated the procedure well and has been instructed to call immediately with the onset of severe pain or visual loss. The patient was strongly advised on the importance of keeping up with current treatment schedule. The patient will continue following an Amsler grid daily and the use of the Age Related Eye Disease Study vitamins. The patient has decided not to proceed with further injections OS. Related to Exudative age-related macular degeneration, bilateral, with active choroidal neovascularization Impression/Plan - Th e patient has a slowly decreasing Vitreous Hemorrhage. Rediscussed the options of vitrectomy surgery at length. Patient would unlikely benefit from surgery due to non-compliance and poor visual potential. Also discussed alternative treatment options with the patient and she has decided not to proceed with further injections and surgery. The patient was again instructed to limit activities and elevate the head of bed to help facilitate clearing. The patient was advised to call with new or worsening floaters, signs or symptoms of a retinal detachment. Related to Vitreous hemorrhage, left eye Impression/Plan - Qu estionable exudative detachment secondary to patients massive subretinal hemorrhage. Treatment options were discussed with the patient. However, due to poor visual prognosis because of the PVR, we will hold off on treatment. We will continue to monitor. Related to Other retinal detachment Follow up - Return i n [address] Luna for follow up exam with OCT and possible Eylea. Impression/Plan - Th e patient has a slowly decreasing Vitreous Hemorrhage. Rediscussed the options of vitrectomy surgery at length. Patient would unlikely benefit from surgery due to non-compliance and poor visual potential. Also discussed alternative treatment options with the patient and she has decided not to proceed with further injections and surgery. The patient was again instructed to limit activities and elevate the head of bed to help facilitate clearing. The patient was advised to call with new or worsening floaters, signs or symptoms of a retinal detachment. Related to Vitreous hemorrhage, left eye Impression/Plan - Re gular follow up appointments with the patient's comprehensive eye doctor was again recommended, to monitor the patients cataract for progression. Related to Age-related nuclear cataract, bilateral Impression/Plan - Se condary to patients massive vitreous hemorrhage. Treatment options were discussed with the patient. However, due to poor visual prognosis because of the PVR, we will hold off on treatment. We will continue to monitor. Related to Other retinal detachment Impression/Plan - Ba sed on today's exam findings and interpretation of testing, continued antiVEGF treatment for Exudative Age Related Macular Degeneration was again recommended and discussed with the patient. The risks, benefits, and alternatives were reviewed. The patient wishes to continue and received an intravitreal injection of Eylea OD today. We will maintain dosing intervals at 6 weeks. The patient tolerated the procedure well and has been instructed to call immediately with the onset of severe pain or visual loss. The patient was strongly advised on the importance of keeping up with current treatment schedule. The patient will continue following an Amsler grid daily and the use of the Age Related Eye Disease Study vitamins. The patient has decided not to proceed with further injections OS. Related to Exudative age-related macular degeneration, bilateral, with active choroidal neovascularization Follow up - Return i n [address] Luna for follow up exam with OCT and possible Eylea. Impression/Plan - Ba sed on today's exam findings and interpretation of testing, continued antiVEGF treatment for Exudative Age Related Macular Degeneration was again recommended and discussed with the patient. The risks, benefits, and alternatives were reviewed. The patient wishes to continue and received an intravitreal injection of Eylea OD today. We will maintain dosing intervals at 6 weeks. The patient tolerated the procedure well and has been instructed to call immediately with the onset of severe pain or visual loss. The patient was strongly advised on the importance of keeping up with current treatment schedule. The patient will continue following an Amsler grid daily and the use of the Age Related Eye Disease Study vitamins. The patient has decided not to proceed with further injections OS. Related to Exudative age-related macular degeneration, bilateral, with active choroidal neovascularization Impression/Plan - We will continue to monitor. 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 Referral for surgical intervention is not indicated at this time. Related to Age-related nuclear cataract, bilateral Impression/Plan - Se condary to patients massive vitreous hemorrhage. Treatment options were discussed with the patient. However, due to poor visual prognosis because of the PVR we will hold off on treatment. We will continue to monitor. Related to Other retinal detachment Impression/Plan - Th e patient has a slowly decreasing Vitreous Hemorrhage. Rediscussed the options of vitrectomy surgery at length. Patient would unlikely benefit from surgery due to non-compliance and poor visual potential. Also discussed alternative treatment options with the patient and she has decided not to proceed with further injections and surgery. The patient was again instructed to limit activities and elevate the head of bed to help facilitate clearing. The patient was advised to call with new or worsening floaters, signs or symptoms of a retinal detachment. Related to Vitreous hemorrhage, left eye Impression/Plan - Ba sed on today's exam findings and interpretation of testing, continued antiVEGF treatment for Exudative Age Related Macular Degeneration was again recommended and discussed with the patient. The risks, benefits, and alternatives were reviewed. The patient wishes to continue and received an intravitreal injection of Eylea OD today. We will decrease dosing intervals to 6 weeks due to recurrent fluid OD (today is 15 weeks since previous injection, patient missed 7-8 week appointment). The patient tolerated the procedure well and has been instructed to call immediately with the onset of severe pain or visual loss. The patient was strongly advised on the importance of keeping up with current treatment schedule. The patient will continue following an Amsler grid daily and the use of the Age Related Eye Disease Study vitamins. The patient has decided not to proceed with further injections OS. Related to Exudative age-related macular degeneration, bilateral, with active choroidal neovascularization Impression/Plan - We will continue to monitor. 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 Referral for surgical intervention is not indicated at this time. Related to Age-related nuclear cataract, bilateral Impression/Plan - Se condary to patients massive vitreous hemorrhage. Treatment options were discussed with the patient. However, due to poor visual prognosis because of the PVR we will hold off on treatment. We will continue to monitor. Related to Other retinal detachment Impression/Plan - Th e patient has a persistent Vitreous Hemorrhage. Rediscussed the options of vitrectomy surgery at length. Patient would unlikely benefit from surgery due to non-compliance and poor visual potential. Also discussed alternative treatment options with the patient and she has decided not to proceed with further injections and surgery. The patient was again instructed to limit activities and elevate the head of bed to help facilitate clearing. The patient was advised to call with new or worsening floaters, signs or symptoms of a retinal detachment. Related to Vitreous hemorrhage, left eye Follow up - Return i n [address] Luna for follow up exam with OCT and possible Eylea. Impression/Plan - Th e patient has a slowly clearing Vitreous Hemorrhage. Rediscussed the options of vitrectomy surgery at length. Patient would unlikely benefit from surgery due to non-compliance and poor visual potential. Also discussed alternative treatment options with the patient and she has decided not to proceed with further injections and surgery. The patient was again instructed to limit activities and elevate the head of bed to help facilitate clearing. The patient was advised to call with new or worsening floaters, signs or symptoms of a retinal detachment. Related to Vitreous hemorrhage, left eye Impression/Plan - Ba sed on today's exam findings and interpretation of testing, continued antiVEGF treatment for Exudative Age Related Macular Degeneration was again recommended and discussed with the patient. The risks, benefits, and alternatives were reviewed. The patient wishes to continue and received an intravitreal injection of Eylea OD today. We will maintain dosing intervals at 7-8 weeks OD. The patient tolerated the procedure well and has been instructed to call immediately with the onset of severe pain or visual loss. The patient was strongly advised on the importance of keeping up with current treatment schedule. The patient will continue following an Amsler grid daily and the use of the Age Related Eye Disease Study vitamins. The patient has decided not to proceed with further injections OS. Related to Exudative age-related macular degeneration, bilateral, with active choroidal neovascularization Impression/Plan - We will continue to monitor. 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 Referral for surgical intervention is not indicated at this time. Related to Age-related nuclear cataract, bilateral Exudative age-relate d macular degeneration, bilateral, with active choroidal neovascularization - Use of grid discussed. Related to Exudative age-related macular degeneration, bilateral, with active choroidal neovascularization Impression/Plan - Se condary to patients massive vitreous hemorrhage. Treatment options were discussed with the patient. However, due to poor visual prognosis because of the PVR we will hold off on treatment. We will continue to monitor. Related to Other retinal detachment Follow up - Return i n 7-[address] Luna for follow up exam, OCT and possible Eylea Impression/Plan - Se condary to patients massive vitreous hemorrhage. Treatment options were discussed with the patient. However, due to poor visual prognosis because of the PVR we will hold off on treatment. We will continue to monitor. Related to Other retinal detachment Follow up - Return i n 7-[address] Luna for FU,OCT and possible Eylea OD. Impression/Plan - Re gular follow up appointments with the patient's comprehensive eye doctor was again recommended, to monitor the patients cataract for progression. Referral for surgical intervention is not indicated at this time. Related to Age-related nuclear cataract, bilateral Impression/Plan - We will continue to monitor. 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 The risks, benefits, and alternatives were reviewed. The patient wishes to continue and received an intravitreal injection of Eylea OD today. We will maintain dosing intervals at 7-8 weeks OD. The patient tolerated the procedure well and has been instructed to call immediately with the onset of severe pain or visual loss. The patient was strongly advised on the importance of keeping up with current treatment schedule. The patient will continue following an Amsler grid daily and the use of the Age Related Eye Disease Study vitamins. The patient has decided not to proceed with further injections OS. Related to Exudative age-related macular degeneration, bilateral, with active choroidal neovascularization Impression/Plan - Th e patient has a slowly clearing Vitreous Hemorrhage. Rediscussed the options of vitrectomy surgery at length. Patient would unlikely benefit from surgery due to non-compliance and poor visual potential. Also discussed alternative treatment options with the patient and she has decided not to proceed with further injections and surgery. The patient was again instructed to limit activities and elevate the head of bed to help facilitate clearing. The patient was advised to call with new or worsening floaters, signs or symptoms of a retinal detachment. Related to Vitreous hemorrhage, left eye Impression/Plan - We will continue to monitor. 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 Referral for surgical intervention is not indicated at this time. Related to Age-related nuclear cataract, bilateral Impression/Plan - Th e patient has a slowly clearing Vitreous Hemorrhage. Rediscussed the options of vitrectomy surgery at length. Patient would unlikely benefit from surgery due to non-compliance and poor visual potential. Also discussed alternative treatment options with the patient and she has decided not to proceed with further injections and surgery. The patient was again instructed to limit activities and elevate the head of bed to help facilitate clearing. The patient was advised to call with new or worsening floaters, signs or symptoms of a retinal detachment. Related to Vitreous hemorrhage, left eye Impression/Plan - Ba sed on today's exam findings and interpretation of testing, continued antiVEGF treatment for Exudative Age Related Macular Degeneration was again recommended and discussed with the patient. The risks, benefits, and alternatives were reviewed. The patient wishes to continue and received an intravitreal injection of Eylea OD today. We will maintain dosing intervals at 7-8 weeks OD. The patient tolerated the procedure well and has been instructed to call immediately with the onset of severe pain or visual loss. The patient was strongly advised on the importance of keeping up with current treatment schedule. The patient will continue following an Amsler grid daily and the use of the Age Related Eye Disease Study vitamins. The patient has decided not to proceed with further injections OS. Related to Exudative age-related macular degeneration, bilateral, with active choroidal neovascularization Exudative age-relate d macular degeneration, bilateral, with active choroidal neovascularization - Use of grid discussed. Related to Exudative age-related macular degeneration, bilateral, with active choroidal neovascularization Follow up - Return i n [address] Luna for follow up exam with OCT and possible Eylea. Follow up - Return i n 7-[address] Luna for follow up exam with OCT and possible Eylea OD. Impression/Plan - Th e patient has a slowly clearing Vitreous Hemorrhage. Cannot rule out a serous detachment on repeat B-scan today. Rediscussed the options of vitrectomy surgery at length. Patient would unlikely benefit from surgery due to non-compliance and poor visual potential. Also discussed alternative treatment options with the patient and she has decided not to proceed with further injections and surgery. The patient was again instructed to limit activities and elevate the head of bed to help facilitate clearing. The patient was advised to call with new or worsening floaters, signs or symptoms of a retinal detachment. Related to Vitreous hemorrhage, left eye Impression/Plan - Re gular follow up appointments with the patient's comprehensive eye doctor was again recommended, to monitor the patients cataract for progression. Referral for surgical intervention is not indicated at this time. Related to Age-related nuclear cataract, bilateral Impression/Plan - We will continue to monitor. 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 Related to Exudative age-related macular degeneration, bilateral, with active choroidal neovascularization Impression/Plan - Ba sed on today's exam findings and interpretation of testing, continued antiVEGF treatment for Exudative Age Related Macular Degeneration was again recommended and discussed with the patient. The risks, benefits, and alternatives were reviewed. The patient wishes to continue and received an intravitreal injection of Eylea OD today. We will maintain dosing intervals at 7-8 weeks OD. The patient tolerated the procedure well and has been instructed to call immediately with the onset of severe pain or visual loss. The patient was strongly advised on the importance of keeping up with current treatment schedule. The patient will continue following an Amsler grid daily and the use of the Age Related Eye Disease Study vitamins. The patient has decided not to proceed with further injections OS. Related to Exudative age-related macular degeneration, bilateral, with active choroidal neovascularization Impression/Plan - Ba sed on today's exam findings and interpretation of testing, continued antiVEGF treatment for Exudative Age Related Macular Degeneration was again recommended and discussed with the patient. The risks, benefits, and alternatives were reviewed. The patient wishes to continue and received an intravitreal injection of Eylea OD today. We will maintain dosing intervals at 7-8 weeks OD. The patient tolerated the procedure well and has been instructed to call immediately with the onset of severe pain or visual loss. The patient was strongly advised on the importance of keeping up with current treatment schedule. The patient will continue following an Amsler grid daily and the use of the Age Related Eye Disease Study vitamins. The patient has decided not to proceed with further injections OS. Related to Exudative age-related macular degeneration, bilateral, with active choroidal neovascularization Exudative age-relate d macular degeneration, bilateral, with active choroidal neovascularization - Use of grid discussed. Related to Exudative age-related macular degeneration, bilateral, with active choroidal neovascularization Follow up - Return i n 7-[address] Luna for follow up exam and OCT. Impression/Plan - Re eddir follow up appointments with the patient's comprehensive eye doctor was again recommended, to monitor the patients cataract for progression. Referral for surgical intervention is not indicated at this time. Related to Age-related nuclear cataract, bilateral Impression/Plan - We will continue to monitor. 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 Cannot rule out a serous detachment on repeat B-scan today. Rediscussed the options of vitrectomy surgery at length. Patient would unlikely benefit from surgery due to non-compliance and poor visual potential. Also discussed alternative treatment options with the patient and she has decided not to proceed with further injections and surgery. The patient was again instructed to limit activities and elevate the head of bed to help facilitate clearing. The patient was advised to call with new or worsening floaters, signs or symptoms of a retinal detachment. Related to Vitreous hemorrhage, left eye Follow up - Return i n 7-[address] Luna for follow up exam and OCT. Exudative age-relate d macular degeneration, bilateral, with active choroidal neovascularization - Use of grid discussed. Related to Exudative age-related macular degeneration, bilateral, with active choroidal neovascularization Impression/Plan - Ba sed on today's exam findings and interpretation of testing, continued antiVEGF treatment for Exudative Age Related Macular Degeneration was again recommended and discussed with the patient. The risks, benefits, and alternatives were reviewed. The patient wishes to continue and received an intravitreal injection of Eylea OD today. We will maintain dosing intervals at 7-8 weeks OD (patient missed last injection appointment). The patient tolerated the procedure well and has been instructed to call immediately with the onset of severe pain or visual loss. The patient was strongly advised on the importance of keeping up with current treatment schedule. The patient will continue following an Amsler grid daily and the use of the Age Related Eye Disease Study vitamins. The patient has decided not to proceed with further injections OS. Related to Exudative age-related macular degeneration, bilateral, with active choroidal neovascularization Impression/Plan - Re gular follow up appointments with the patient's comprehensive eye doctor was again recommended, to monitor the patients cataract for progression. Referral for surgical intervention is not indicated at this time. Related to Age-related nuclear cataract, bilateral Impression/Plan - We will continue to monitor. 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 There is evidence of a serous detachment around the subretinal blood. Discussed the options of vitrectomy surgery. Patient would unlikely benefit from surgery due to non-compliance and poor visual potential. Also discussed alternative treatment options with the patient and she has decided not to proceed with further injections and surgery. The patient was again instructed to limit activities and elevate the head of bed to help facilitate clearing. The patient was advised to call with new or worsening floaters, signs or symptoms of a retinal detachment. Related to Vitreous hemorrhage, left eye Return in Related to Vitre ous hemorrhage, left eye Follow up - Return a s scheduled on 08/24/16 for OCT and possible injection OD. Related to Vitreous hemorrhage, left eye Impression/Plan - Re gular follow up appointments with the patient's comprehensive eye doctor was again recommended, to monitor the patients cataract for progression. Referral for surgical intervention is not indicated at this time. Related to Age-related nuclear cataract, bilateral Impression/Plan - We will continue to monitor. 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 The risks, benefits, and alternatives were reviewed. The patient wishes to continue and received an intravitreal injection of Eylea OS today. We will maintain dosing intervals at 5-6 weeks OS due to recurrent fluid. The patient tolerated the procedure well and has been instructed to call immediately with the onset of severe pain or visual loss. The patient was strongly advised on the importance of keeping up with current treatment schedule. The patient will continue following an Amsler grid daily and the use of the Age Related Eye Disease Study vitamins. Return as scheduled on 08/24/16 for Eylea OD. Related to Exudative age-related macular degeneration, bilateral, with active choroidal neovascularization Impression/Plan - Th e patient has a Vitreous Hemorrhage. No signs of retinal detachment on B-scan today. Decreased IOP in office today. The patient was instructed to limit activities and elevate the head of bed to help facilitate clearing. Discussed the options of vitrectomy surgery. We will continue with the Eylea injection today to help facilitate the bleeding from continuing. The patient was advised to call with new or worsening floaters, signs or symptoms of a retinal detachment. Related to Vitreous hemorrhage, left eye Follow up - Return i n [address] Luna for follow up exam with OCT and possible Eylea OS, 7-8 weeks OD. Impression/Plan - We will continue to monitor. 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 Related to Exudative age-related macular degeneration, bilateral, with active choroidal neovascularization Impression/Plan - Ba sed on today's exam findings and interpretation of testing, continued antiVEGF treatment for Exudative Age Related Macular Degeneration was again recommended and discussed with the patient. The risks, benefits, and alternatives were reviewed. The patient wishes to continue and received an intravitreal injection of Eylea OD today. We will decrease dosing intervals to 7-8 weeks OD due to recurrent fluid. The patient tolerated the procedure well and has been instructed to call immediately with the onset of severe pain or visual loss. The patient was strongly advised on the importance of keeping up with current treatment schedule. The patient will continue following an Amsler grid daily and the use of the Age Related Eye Disease Study vitamins. Patient to return in 1 week for repeat evaluation OS (poor prognosis). Related to Exudative age-related macular degeneration, bilateral, with active choroidal neovascularization Impression/Plan - Re eddir follow up appointments with the patient's comprehensive eye doctor was again recommended, to monitor the patients cataract for progression. Referral for surgical intervention is not indicated at this time. Related to Age-related nuclear cataract, bilateral Impression/Plan - Th e patient has a new Vitreous Hemorrhage. No signs of retinal detachment on B-scan today. Elevated IOP today (48), Combigan and Travatan instilled in office (decreased to 32). ERX sent for patient to use drops at home (Combigan BID and Travatan QHS). The patient was instructed to limit activities and elevate the head of bed to help facilitate clearing. The patient was advised to call with new or worsening floaters, signs or symptoms of a retinal detachment. Related to Vitreous hemorrhage, left eye Oct- - 5-6 weeks for foll ow up, OCT and possible INJ. Related to Exudative age-related macular degeneration Oct- - 4-5 weeks for foll ow up, OCT and possible INJ. Related to Exudative age-related macular degeneration Return in Related to Exuda tive age-related macular degeneration Follow up - Return i n 1 week for follow up, OCT and possible injection. Related to Exudative age-related macular degeneration Impression/Plan - Re gular follow up appointments with the patient's comprehensive eye doctor was again recommended, to monitor the patients cataract for progression. Referral for surgical intervention is not indicated at this time. Related to Age-related nuclear cataract, bilateral Impression/Plan - We will continue to monitor. 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 The risks, benefits, and alternatives were reviewed. The patient wishes to continue and received an intravitreal injection of Eylea today OS. (Patient missed her last appointment and I had a long discussion with her regarding keepoing her appointments.) The patient tolerated the procedure well and has been instructed to call immediately with the onset of severe pain or visual loss. The need for further treatment will be determined at future visits. The patient will continue following an Amsler grid daily and the use of the Age Related Eye Disease Study vitamins. Patient will return in 1 week for IO OD. 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 Luna for follow up exam with OCT and possible INJ-Eylea OS, 05/21/16 OD. 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 The risks, benefits, and alternatives were reviewed. Due to no significant change on OCT with trial of Lucentis, we will continue treatment with Eylea OS today. The patient tolerated the procedure well and has been instructed to call immediately with the onset of severe pain or visual loss. We will maintain dosing intervals at 5-6 weeks OS, increase 9-10 weeks OD. The patient will continue following an Amsler grid daily and the use of the Age Related Eye Disease Study vitamins. Patient to return in 5-6 weeks for repeat evaluation OS. 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 Referral for surgical intervention is not indicated at this time. Related to Age-related nuclear cataract, bilateral - We will continue to monitor. 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 Luna for eval, OCT and possible injection. 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 The risks, benefits, and alternatives were reviewed. The patient wishes to continue and received an intravitreal injection of Lucentis OU today (we will try the Lucentis today to see if we get any better results). The patient tolerated the procedure well and has been instructed to call immediately with the onset of severe pain or visual loss. The need for further treatment will be determined at future visits. The patient will continue following an Amsler grid daily and the use of the Age Related Eye Disease Study vitamins. We will increase the interval for OD to 7-8 weeks and maintain the 5-6 week interval for OS. 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 Referral for surgical intervention is not indicated at this time. Related to Age-related nuclear cataract, bilateral - RTN as scheduled O D, 5-6 weeks for follow up exam with OCT and possible INJ-Eylea OS. 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 Referral for surgical intervention is not indicated at this time. Related to Age-related nuclear cataract, bilateral - We will continue to monitor. 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 The risks, benefits, and alternatives were reviewed. The patient wishes to continue and received an intravitreal injection of Eylea OD today. The patient tolerated the procedure well and has been instructed to call immediately with the onset of severe pain or visual loss. The need for further treatment will be determined at future visits. The patient will continue following an Amsler grid daily and the use of the Age Related Eye Disease Study vitamins. Patient is to return in 1 week for IO-Eylea OS. 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 INJ Related to Exudative age-related macular degeneration - Return in 1 week w corona Luna for OCT and possible injection OS. 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 The risks, benefits, and alternatives were reviewed. The patient wishes to continue and received an intravitreal injection of Eylea OD today. We will have the patient come back on a 5-6 week basis. The patient tolerated the procedure well and has been instructed to call immediately with the onset of severe pain or visual loss. The need for further treatment will be determined at future visits. The patient will continue following an Amsler grid daily and the use of the Age Related Eye Disease Study vitamins. 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 Referral for surgical intervention is not indicated at this time. Related to Age-related nuclear cataract, bilateral - Return in 7-[address] Luna for follow up exam with OCT and possible INJ-Eylea OS. Related to Exudative age-related macular degeneration Exudative age-relate d macular degeneration - Use of grid discussed. 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 Referral for surgical intervention is not indicated at this time. Related to Age-related nuclear cataract, bilateral - Due to the patient now noticing increased distortion in her left eye, we will restart Eylea treatment. The risks, benefits, and alternatives were reviewed. The patient wishes to continue and received an intravitreal injection of Eylea OS today. The patient tolerated the procedure well and has been instructed to call immediately with the onset of severe pain or visual loss. The need for further treatment will be determined at future visits. The patient will continue following an Amsler grid daily and the use of the Age Related Eye Disease Study vitamins. 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 Referral for surgical intervention is not indicated at this time. Related to Age-related nuclear cataract, bilateral Oct - Return in [address] Luna for follow up exam with OCT. 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 There is no evidence of associated retinal pathology. All signs and symptoms of retinal detachment and tears were discussed in detail. The patient was instructed to call the office immediately if any symptoms are noted. 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 The risks, benefits, and alternatives were reviewed. The patient denied treatment today after a lenghtly discussion explaining to the patient that if we let this go she could re-bleed at anytime. Patient does not want to be seen again until August and we will re-discuss treatment at that time. The need for further treatment will be determined at future visits. The patient will continue following an Amsler grid daily and the use of the Age Related Eye Disease Study vitamins. 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 Luna for follow up exam with OCT. Related to Exudative macular degeneration of retina - The stable exam fi ndings were discussed with the patient. Based on today's exam and interpretation of testing the option of a continued treatment interval every 3 months vs holding treatment with careful 5-6 week monitored follow up visits were re-discussed. We will hold treatment at this time and reassess in 5-6 weeks. The need for ongoing treatment will be determined at future visits. The patient will continue following an Amsler grid daily and the use of the Age Related Eye Disease Study vitamins and is to call immediately if any changes are noticed. Related to Exudative macular degeneration of retina - Well positioned in traocular lens implants were again noted on examination today. I advised the patient of the importance of regular follow up appointments with the patients referring physician for all comprehensive needs. Related to Lens replaced by other means - Will continue to monitor. Rela harmony to Vitreous degeneration - Will continue to monitor. Rela harmony to Secondary pigmentary degeneration of retina - Will hold Eylea th erapy at this time and reassess in 5-6 weeks. Related to Retinal neovascularization nos - Return in 4-[address] Luna for a follow up and OCT. Related to Exudative macular degeneration of retina - Will continue to m onitor for progression. 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 Rela harmony to Vitreous degeneration - Will hold Eylea th erapy at this time and reassess in 4-6 weeks. Related to Retinal neovascularization nos - The stable exam fi ndings were discussed with the patient. Based on today's exam and interpretation of testing the option of a continued treatment interval every 3 months vs holding treatment with careful 4-6 week monitored follow up visits were re-discussed. We will hold treatment at this time and reassess in 4-6 weeks. The need for ongoing treatment will be determined at future visits. The patient will continue following an Amsler grid daily and the use of the Age Related Eye Disease Study vitamins. Related to Exudative macular degeneration of retina Exudative macular de generation of retina - Educational brochure provided. Related to Exudative macular degeneration of retina Exudative macular de generation of retina - Use of grid discussed. Related to Exudative macular degeneration of retina Exudative macular de generation of retina - AREDS formula discussed. Related to Exudative macular degeneration of retina - Well positioned in traocular lens implants were again noted on examination today. I advised the patient of the importance of regular follow up appointments with the patients referring physician for all comprehensive needs. Related to Lens replaced by other means - Return in 5-6 week s for follow up exam Related to Exudative macular degeneration of retina - Return in [address] Luna for IO Related to Exudative macular degeneration of retina - Well positioned in traocular lens implants were again noted on examination today. I advised the patient of the importance of regular follow up appointments with the patients referring physician for all comprehensive needs. Related to Lens replaced by other means - Will continue to monitor. Rela harmony to Vitreous degeneration - Will continue to m onitor for progression. 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 Related to Retinal neovascularization nos - Based on today's e xam findings and interpretation of testing, continued antiVEGF treatment for Exudative Age Related Macular Degeneration was again recommended and discussed with the patient. The risks, benefits, and alternatives were reviewed. The patient wishes to continue and received an intravitreal injection of Eylea OD today. The patient tolerated the procedure well and has been instructed to call immediately with the onset of severe pain or visual loss. Patient had missed her last appointment and it has been 3 months since last injection. We will keep the intervals at 3 months due to no fluid unless patient notices any changes in vision. Patient will return in 1 week for OS injection. The patient will continue following an Amsler grid daily and the use of the Age Related Eye Disease Study vitamins. Related to Exudative macular degeneration of retina - Return in 5-6 week s for follow up exam. 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 Luna for follow up exam. Related to Exudative macular degeneration of retina - Will continue to m onitor for progression. 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 Related to Retinal neovascularization nos - Well positioned in traocular lens implants were again noted on examination today. I advised the patient of the importance of regular follow up appointments with the patients referring physician for all comprehensive needs. Related to Lens replaced by other means - Based on today's e xam findings and interpretation of testing, continued antiVEGF treatment for Exudative Age Related Macular Degeneration was again recommended and discussed with the patient. The risks, benefits, and alternatives were reviewed. The patient wishes to continue and received an intravitreal injection of Eylea OD today. The patient tolerated the procedure well and has been instructed to call immediately with the onset of severe pain or visual loss. The need for further treatment will be determined at future visits. The patient will continue following an Amsler grid daily and the use of the Age Related Eye Disease Study vitamins. Related to Exudative macular degeneration of retina Exudative macular de generation of retina - Educational brochure provided. Related to Exudative macular degeneration of retina Exudative macular de generation of retina - Use of grid discussed. Related to Exudative macular degeneration of retina Exudative macular de generation of retina - AREDS formula discussed. Related to Exudative macular degeneration of retina - Will continue to monitor. Rela harmony to Vitreous degeneration - Return in 4-5 week s for follow up exam. 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 Luna for injection only OS Related to Exudative macular degeneration of retina Exudative macular de generation of retina - AREDS formula discussed. Related to Exudative macular degeneration of retina Exudative macular de generation of retina - Educational brochure provided. Related to Exudative macular degeneration of retina Exudative macular de generation of retina - Use of grid discussed. Related to Exudative macular degeneration of retina - Well positioned in traocular lens implants were again noted on examination today. I advised the patient of the importance of regular follow up appointments with the patients referring physician for all comprehensive needs. Related to Lens replaced by other means - Will continue to m onitor for progression. 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 Related to Retinal neovascularization nos - Based on today's e xam findings and interpretation of testing, continued antiVEGF treatment for Exudative Age Related Macular Degeneration was again recommended and discussed with the patient. The risks, benefits, and alternatives were reviewed. The patient wishes to continue and received an intravitreal injection of Eylea OD today. The patient tolerated the procedure well and has been instructed to call immediately with the onset of severe pain or visual loss. The need for further treatment will be determined at future visits. The patient will continue following an Amsler grid daily and the use of the Age Related Eye Disease Study vitamins. Related to Exudative macular degeneration of retina - Will continue to monitor. Rela harmony to Vitreous degeneration - Return in 4-5 week s for follow up exam with DrWillie Or Related to Exudative macular degeneration of retina - Return in 1-[address] Luna for follow up exam. Related to Exudative macular degeneration of retina - Well positioned in traocular lens implants were again noted on examination today. I advised the patient of the importance of regular follow up appointments with the patients referring physician for all comprehensive needs. Related to Lens replaced by other means - Will continue to monitor. Rela harmony to Vitreous degeneration - Will continue to m onitor for progression. 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 Related to Retinal neovascularization nos Exudative macular de generation of retina - AREDS formula discussed Related to Exudative macular degeneration of retina Exudative macular de generation of retina - Educational brochure provided Related to Exudative macular degeneration of retina Exudative macular de generation of retina - Use of grid discussed Related to Exudative macular degeneration of retina - Based on today's e xam findings and interpretation of testing, continued antiVEGF treatment for Exudative Age Related Macular Degeneration was again recommended and discussed with the patient. The risks, benefits, and alternatives were reviewed. We will keep 6-7 weeks intervals for OD due to recurrent fluid on OCT at 8 weeks. The patient wishes to continue and received an intravitreal injection of Eylea OD today. The patient tolerated the procedure well and has been instructed to call immediately with the onset of severe pain or visual loss. The need for further treatment will be determined at future visits. The patient will continue following an Amsler grid daily and the use of the Age Related Eye Disease Study vitamins. Related to Exudative macular degeneration of retina - Return in [address] Luna for injection only OS Eylea. Related to Exudative macular degeneration of retina - Will proceed with Eylea OS as stated in the above plan. Related to Retinal neovascularization nos - Based on today's e xam findings and interpretation of testing, continued antiVEGF treatment for Exudative Age Related Macular Degeneration was again recommended and discussed with the patient. The risks, benefits, and alternatives were reviewed. We will keep 6-7 week intervals for OS due to persistent fluid on OCT. There is no fluid OD, we will slowly increase treatment intervals to 6-7 weeks. The patient wishes to continue and received an intravitreal injection of Eylea OS today. The patient tolerated the procedure well and has been instructed to call immediately with the onset of severe pain or visual loss. The need for further treatment will be determined at future visits. The patient will continue following an Amsler grid daily and the use of the Age Related Eye Disease Study vitamins. Related to Exudative macular degeneration of retina - Well positioned in traocular lens implants were again noted on examination today. I advised the patient of the importance of regular follow up appointments with the patients referring physician for all comprehensive needs. Related to Lens replaced by other means - Will continue to monitor. Rela harmony to Vitreous degeneration - Will continue to m onitor for progression. 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 Related to Exudative macular degeneration of retina - Return in 1 week w corona Luna for follow up exam, OCT and possible Lucentis 0.5mg OD (injection only, may switch to Eylea) Related to Exudative macular degeneration of retina - Will continue to monitor. Rela harmony to Vitreous degeneration - Will continue to m onitor for progression. 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 Related to Retinal neovascularization nos - Based on today's e xam and interpretation of testing I discussed with the patient the plan to switch from Lucentis 0.5mg to Eylea due to increasing fluid. The patient agreed so initial antiVEGF treatment of Eylea OD for Exudative Age Related Macular Degeneration was explained to the patient. The risks, benefits, and alternatives were discussed. The goal of a treat and extend regimen was explained and will be implemented as long as good treatment response and regressing exam findings allow. The patient wishes to proceed and received an intravitreal injection of Eylea OD today. The patient tolerated the procedure well and has been instructed to call immediately with the onset of severe pain or visual loss. The need for ongoing treatment will be determined at future visits. The patient was instructed to start using the antioxidant vitamins as described in the Age Related Eye Disease Study and to follow an Amsler grid daily. Related to Exudative macular degeneration of retina - Well positioned in traocular lens implants were again noted on examination today. I advised the patient of the importance of regular follow up appointments with the patients referring physician for all comprehensive needs. Related to Lens replaced by other means - 5 wks OD exam, OCT , poss Lucentis .5 mg Related to Exudative macular degeneration of retina - Will continue to monitor. Rela harmony to Vitreous degeneration - Well positioned in traocular lens implants were again noted on examination today. I advised the patient of the importance of regular follow up appointments with the patients referring physician for all comprehensive needs. Related to Lens replaced by other means - Return in 1 week w corona Luna for follow up exam , OCT , possible Lucentis 0.5mg OS. Related to Exudative macular degeneration of retina - Will continue to m onitor for progression. 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 Related to Retinal neovascularization nos - Based on today's e xam findings and interpretation of testing, continued antiVEGF treatment for Exudative Age Related Macular Degeneration was again recommended and discussed with the patient. The risks, benefits, and alternatives were reviewed. The patient wishes to continue and received an intravitreal injection of Lucentis 0.5mg today OD. Clinical findings can not explain the patient decrease in vision therefore we will have the patient return in 1 week for her scheduled appointment. The patient tolerated the procedure well and has been instructed to call immediately with the onset of severe pain or visual loss. The need for further treatment will be determined at future visits. The patient will continue following an Amsler grid daily and the use of the Age Related Eye Disease Study vitamins. 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 Luna for follow up exam, OCT and possible Lucentis OD. 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 - Will continue to monitor. 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 - Will continue to monitor. 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 - Will proceed with Lucentis OD as stated above. Related to Retinal neovascularization nos Lens replaced by oth er means OU Condition: established. - Well positioned intraocular lens implants were again noted on examination today. I advised the patient of the importance of regular follow up appointments with the patients referring physician for all comprehensive needs. Related to Lens replaced by other means Exudative macular de generation of retina OU Condition: moderate, chronic, active. - Based on today's exam findings and interpretation of testing, continued antiVEGF treatment for Exudative Age Related Macular Degeneration was again recommended and discussed with the patient. We will try to slowly increase the interval of injections to every 6-7 weeks OS. We are restarting treatment OD due to increased subretinal fluid last visit. The risks, benefits, and alternatives were reviewed. The patient wishes to continue and received an intravitreal injection of Lucentis OD today. The patient tolerated the procedure well and has been instructed to call immediately with the onset of severe pain or visual loss. The need for further treatment will be determined at future visits. The patient will continue following an Amsler grid daily and the use of the Age Related Eye Disease Study vitamins. 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 I advised the importance of regular follow up appointments with the patients referring physician for all comprehensive needs. Related to Lens replaced by other means Vitreous degeneratio n OU Condition: mild, chronic, stable, floaters. - Will continue to monitor for progression. Educational materials provided: Flashers/floaters. 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 - Will continue to monitor for progression. 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 - Will proceed with Lucentis 0.5mg OS as stated in the above plan. 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 - Based on today's exam findings and interpretation of testing, continued antiVEGF treatment for Exudative Age Related Macular Degeneration was again recommended and discussed with the patient. The risks, benefits, and alternatives were reviewed. The patient wishes to continue and received an intravitreal injection of Lucentis 0.5mg OS today. The patient tolerated the procedure well and has been instructed to call immediately with the onset of severe pain or visual loss. The need for further treatment will be determined at future visits. The patient will continue following an Amsler grid daily and the use of the Age Related Eye Disease Study vitamins. Use of vitamins has shown to stabilize the effects of ARMD. Counseling about the benefits and/or risks of the Age-Related Eye Disease Study (AREDS) formulation for preventing progression of age-related macular degeneration (AMD) was provided to the patient and/or caregiver(s). Gave patient ARMD book today. 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 - Will continue to monitor for progression. Related to Vitreous degeneration Lens replaced by oth er means OU - Well positioned intraocular lens implant were again noted on examination today. I advised the importance of regular follow up appointments with the patients referring physician for all comprehensive needs. 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 - Will continue to monitor for progression. 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 - Will proceed with Lucentis 0.5mg OS as stated in the above plan. 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 - Based on today's exam findings and interpretation of testing, continued antiVEGF treatment for Exudative Age Related Macular Degeneration was again recommended and discussed with the patient. The risks, benefits, and alternatives were reviewed. The patient wishes to continue and received an intravitreal injection of Lucentis 0.5mg OS today. The patient tolerated the procedure well and has been instructed to call immediately with the onset of severe pain or visual loss. The need for further treatment will be determined at future visits. The patient will continue following an Amsler grid daily and the use of the Age Related Eye Disease Study vitamins. Use of vitamins has shown to improve the effects of ARMD. Counseling about the benefits and/or risks of the Age-Related Eye Disease Study (AREDS) formulation for preventing progression of age-related macular degeneration (AMD) was provided to the patient and/or caregiver(s). Gave patient ARMD book today. 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 Luna for follow up exam, FA, OCT and possible Lucentis 0.5mg OS. 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 Luna for follow up exam, OCT and possible Lucentis 0.5mg OS. 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 - Will continue to monitor for progression. 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 - Will continue to monitor for progression. 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 - Will proceed with Lucentis 0.5mg OS as stated in the above plan. 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 - Based on today's exam findings and interpretation of testing, continued antiVEGF treatment for Exudative Age Related Macular Degeneration was again recommended and discussed with the patient. The risks, benefits, and alternatives were reviewed. The patient wishes to continue and received an intravitreal injection of Lucentis 0.5mg OS today. The patient tolerated the procedure well and has been instructed to call immediately with the onset of severe pain or visual loss. The need for further treatment will be determined at future visits. The patient will continue following an Amsler grid daily and the use of the Age Related Eye Disease Study vitamins. 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 I advised the importance of regular follow up appointments with the patients referring physician for all comprehensive needs. Related to Lens replaced by other means Lens replaced by oth er means OU - A well positioned intraocular lens implant was again noted on examination today. I advised the importance of regular follow up appointments with the patients referring physician for all comprehensive needs. Related to Lens replaced by other means Vitreous degeneratio n OU Condition: mild, chronic, stable, floaters. - Will continue to monitor for progression. 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 - Will continue to monitor for progression. 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 - Will proceed with Lucentis 0.5mg OS as stated in the above plan. Related to Retinal neovascularization nos Exudative macular de generation of retina OU Condition: moderate, chronic, active - Based on today's exam findings and interpretation of testing, continued antiVEGF treatment for Exudative Age Related Macular Degeneration was again recommended and discussed with the patient. The risks, benefits, and alternatives were reviewed. The patient wishes to continue and received an intravitreal injection of Lucentis 0.5mg OS today. The patient tolerated the procedure well and has been instructed to call immediately with the onset of severe pain or visual loss. Discussed with the patient the plan to hold injection OD, it has been 4 months since last treated, patient agreed to proceed. The need for further treatment will be determined at future visits. The patient will continue following an Amsler grid daily and the use of the Age Related Eye Disease Study vitamins. 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 Luna for follow up exam, OCT and possible Lucentis 0.5mg OU. 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 I advised the importance of regular follow up appointments with the patients referring physician for all comprehensive needs. Related to Lens replaced by other means Vitreous degeneratio n OU Condition: mild, chronic, stable, floaters. - Will continue to monitor for progression. 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 - Will continue to monitor for progression. 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 - Will proceed with Lucentis 0.5mg OS as stated in the above plan. 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 - Continued antiVEGF treatment OD for Exudative Age Related Macular Degeneration was recommended and discussed with the patient. The goal of a treat and extend regimen was explained and will be implemented as long as good treatment response and regressing exam findings allow. The risks, benefits, and alternatives were reviewed. The patient chose to continue and received an intravitreal injection of Lucentis 0.5mg OD today. The patient tolerated the procedure well and has been instructed to call immediately with the onset of severe pain or visual loss. The patient will continue following an Amsler grid daily and the use of the Age Related Eye Disease Study vitamins. 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 Luna for follow up exam, OCT and possible Lucentis 0.5mg OS. 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 - Will proceed with Lucentis 0.5mg OS today. 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 Luna for follow up exam, OCT and possible Lucentis 0.5 mg OD. 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 - Continued antiVEGF treatment OS for Exudative Age Related Macular Degeneration was recommended and discussed with the patient. The goal of a treat and extend regimen was explained and will be implemented as long as good treatment response and regressing exam findings allow. The risks, benefits, and alternatives were reviewed. The patient chose to continue and switch from Avastin to prevent any infection and recieve an intial intravitreal injection of Lucentis OS today. The patient tolerated the procedure well and has been instructed to call immediately with the onset of severe pain or visual loss. The patient will continue following an Amsler grid daily and the use of the Age Related Eye Disease Study vitamins. 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 - Will continue to monitor for progression. 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 - Will continue to monitor for progression. Related to Vitreous degeneration Lens replaced by oth er means OU - Advised patient to keep all follow up appointments with Dr. Smallwood. Related to Lens replaced by other means - Return in [address] Luna for follow up exam, OCT and possible Avastin OS. 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 - Will proceed with Avastin OD as stated above. 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 - Continued antiVEGF treatment for Exudative Age Related Macular Degeneration was again recommended and discussed with the patient. We increased the interval of injections to every 10 weeks per patient request; she was informed of the risks of increasing and stated understanding. The risks, benefits, and alternatives were reviewed. The patient chose to continue and received an intravitreal injection of Avastin OD today. The patient tolerated the procedure well and has been instructed to call immediately with the onset of severe pain or visual loss. The patient will continue following an Amsler grid daily and the use of the Age Related Eye Disease Study vitamins. 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 - Will continue to monitor. 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 - Will continue to monitor. Related to Vitreous degeneration Lens replaced by oth er means OU Condition: established. - Advised patient to keep all follow up appointments with Dr. Smallwood. Related to Lens replaced by other means Exudative macular de generation of retina OU Condition: moderate, chronic, active. - Continued antiVEGF treatment for Exudative Age Related Macular Degeneration was again recommended and discussed with the patient. She had refused the recommended injection last visit due to her recent cataract surgery. The risks, benefits, and alternatives were reviewed. The patient chose to continue and received an intravitreal injection of Avastin OS today. The patient tolerated the procedure well and has been instructed to call immediately with the onset of severe pain or visual loss. The patient will continue following an Amsler grid daily and the use of the Age Related Eye Disease Study vitamins. 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 - Advised patient to keep all follow up appointments with Dr. Smallwood. Related to Lens replaced by other means Vitreous degeneratio n OU Condition: established, stable. - Will continue to monitor. 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 - Will continue to monitor. 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 - Will proceed with Avastin OS as stated above. 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 Luna for follow up exam, OCT and possible Avastin OD. Related to Lens replaced by other means Retinal neovasculari zation OU Condition: established, S/P Avastin OU. - See above. 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 - Continued antiVEGF treatment for Exudative Age Related Macular Degeneration was recommended and discussed with the patient, but the patient refused the injection OS today due to proximity of recent cataract surgery and requested to be rescheduled for 1-2 weeks. The risks, benefits, and alternatives were reviewed. The patient has been instructed to call immediately with the onset of severe pain or visual loss. The patient will continue following an Amsler grid daily and the use of the Age Related Eye Disease Study vitamins. 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 Luna for follow up exam, OCT and possible Avastin OS. 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 - Advised patient to keep all follow up appointments with Dr. Smallwood. Related to Lens replaced by other means Vitreous degeneratio n OU Condition: established, stable. - Will continue to monitor. 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 - Will continue to monitor. 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 Smallwood. We scheduled the patient for 9 weeks becasue she is currently scheduled in September to see Dr. Andres for cataract removal. 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 S/P Avastin OU. - Will proceed with Avastin OD as stated above. Related to Retinal neovascularization nos Exudative macular de generation of retina OU Condition: established - Continued antiVEGF treatment for Exudative Age Related Macular Degeneration was recommended and discussed with the patient. The risks, benefits, and alternatives were reviewed. The patient chose to continue and received an intravitreal injection of Avastin OD today. The patient tolerated the procedure well and has been instructed to call immediately with the onset of severe pain or visual loss. The patient will continue following an Amsler grid daily and the use of the Age Related Eye Disease Study vitamins. 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 Luna for follow up exam, OCT and possible Avastin OS. 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 - Advised patient to keep all follow up appointments with Dr. Smallwood and the patient is currently scheduled in September to see Dr. Andres for cataract removal. 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 S/P Avastin OU. - Will proceed with Avastin OS as stated above. Related to Retinal neovascularization nos Exudative macular de generation of retina OU Condition: established. S/P Avastin OU. - Continued antiVEGF treatment for Exudative Age Related Macular Degeneration was recommended and discussed with the patient. The goal of a treat and extend regimen was explained and will be implemented as long as good treatment response and regressing exam findings allow. The risks, benefits, and alternatives were reviewed. The patient chose to continue and received an intravitreal injection of Avastin OS today. The patient tolerated the procedure well and has been instructed to call immediately with the onset of severe pain or visual loss. The patient will continue following an Amsler grid daily and the use of the Age Related Eye Disease Study vitamins. 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 Luna for follow up exam, OCT and possible Avastin OD. 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 - Advised patient to keep all follow up appointments with Dr. Smallwood. 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 - Will continue to monitor. 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 Central and peripheral OU. - Will continue to monitor. 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 S/P Avastin OU. - Will proceed with Avastin OD as stated above. Related to Retinal neovascularization nos Exudative macular de generation of retina OU Condition: established. S/P Avastin OU. - Continued antiVEGF treatment OD for Exudative Age Related Macular Degeneration was recommended and discussed with the patient. The goal of a treat and extend regimen was explained and will be implemented as long as good treatment response and regressing exam findings allow. The risks, benefits, and alternatives were reviewed. The patient chose to continue and received an intravitreal injection of Avastin today. The patient tolerated the procedure well and has been instructed to call immediately with the onset of severe pain or visual loss. The patient will continue following an Amsler grid daily and the use of the Age Related Eye Disease Study vitamins. 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 Luna for follow up exam, OCT, FA and possible Avastin OS. 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 - Advised patient to keep all follow up appointments with Dr. Smallwood. 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 - Will continue to monitor. 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 Central and peripheral OU. - Will continue to monitor. 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 S/P Avastin OU. - Will proceed with Avastin OS as stated above. Related to Retinal neovascularization nos Exudative macular de generation of retina OU Condition: established. S/P Avastin OU. - Continued antiVEGF treatment OS for Exudative Age Related Macular Degeneration was recommended and discussed with the patient. The goal of a treat and extend regimen was explained and will be implemented as long as good treatment response and regressing exam findings allow. The risks, benefits, and alternatives were reviewed. The patient chose to continue and received an intravitreal injection of Avastin today. The patient tolerated the procedure well and has been instructed to call immediately with the onset of severe pain or visual loss. The patient will continue following an Amsler grid daily and the use of the Age Related Eye Disease Study vitamins. 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 Luna for follow up exam, OCT and possible Avastin OD. 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 - Will continue to monitor. 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 - Will continue to monitor. 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 Central and peripheral OU. - Will continue to monitor. 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 S/P Avastin OU. - Proceed with Avastin as discussed. Related to Retinal neovascularization nos Exudative macular de generation of retina OU Condition: established. S/P Avastin OU. - Continued antiVEGF treatment OD for Exudative Age Related Macular Degeneration was recommended and discussed with the patient. The goal of a treat and extend regimen was explained and will be implemented as long as good treatment response and regressing exam findings allow. The risks, benefits, and alternatives were reviewed. The patient chose to continue and received an intravitreal injection of Avastin today. The patient tolerated the procedure well and has been instructed to call immediately with the onset of severe pain or visual loss. The patient will continue following an Amsler grid daily and the use of the Age Related Eye Disease Study vitamins. 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 Luna for follow up exam, OCT and possible Avastin OS. 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 OD. Condition: moderate, chronic, stable assessment Exudative age-rel mclr degn, lef t eye, with inactive scar impression Exudative age-rel mc lr degn, left eye, with inactive scar: H35.3223 OS assessment Other retinal detachment 2019 impression Other retinal detachment: H33.8 assessment Age-related nuclear cataract, bi lateral impression Diagnosis: Age-relat ed nuclear cataract, bilateral. Code: H25.13. Side: OU. Conditions: progressive assessment HTN impression HTN: [id number] Patient Care Teams Name Effective Dates (start - stop) Status Members No Information
--- OUTSIDE RECORDS SUMMARY | 2025-06-15 02:56 | XMS_ITS | Continuity of Care Document ---
Author Organization [facility] Address [address] [place] [address] Phone Care Team Providers Care Relief Charge Nurse Name Role Phone Ghada COOMBS, Sukhi Unavailable Unavailable Allergies, Adverse Reactions, Alerts Substance Reaction Status Criticality No Known Allergies Active No Inform ation Medications Medication Instructions Dosage Effective Dates (start - stop) Status Comments biotin 300 mcg tablet - Active Vitamin D3 2,000 unit tablet - Active Os-Abraham 500 + D3 500 mg (1,250 mg)-200 unit tablet - Active Prilosec 20 mg capsule,delayed release take 1 capsule by oral route every day 30 minutes to 1 hour before a meal - Active Lovaza 1 gram capsule take 2 capsule by oral route 2 times every day 2 G - Active Tirosint 88 mcg capsule take 1 capsule by oral route every day 88 MCG - Active folic acid 1 mg tablet take 1 tablet by oral route every day 1 MG - Active Celexa 10 mg tablet take 1 tablet by ora l route every day 10 MG - Active multivitamin capsule - Active Lipitor 20 mg tablet take 1 tablet by or al route every day 20 MG - Active Procedures Procedure Date Admin influenza virus vac FLU VACC PRSV FREE INC ANTIG Pfizer Booster Vaccine COVID-19 Pfizer Admin influenza virus vac FLU VACC PRSV FREE INC ANTIG Admin pneumococcal vaccine PNEUMOCOCCAL VACC, 13 KRYSTINA IM Extract; Erupted Th/exposted Rt - 016 Panoramic Film Comp Oral Eval New/estab Patient 2015 Advance Directives Directive Yes / No Effective Date File Name No Information Encounters Encounter Description Practice Location Reason(s) For Visit Diagnoses Date Provider Providers Copied on Encounter [facility], [address], [place], [id number], [place] tel:[phone] [facility] No Information Ghada Baeza. [address], [place], [id number], [place]. tel:[phone] [facility], [address], [place], [id number], [place] tel:[phone] [facility] No Information Viscdanyell Baeza. [address], [place], [id number], [place]. tel:[phone] [facility], [address], [place], [id number], [place] tel:[phone] [facility] No Information Ghada Baeza. [address], [place], [id number], [place]. tel:[phone] [facility], [address], [place], [id number], [place] tel:[phone] [facility] EXT (chief complaint) Encounter for screening for dental disorders Satya DMD Dione. [address], [place], [id number], [place]. tel:[phone] [facility], [address], [place], [id number], [place] tel:[phone] Dental Clinic Encounter for screening for dental disorders Satya DMD Dione. [address], [place], [id number], [place]. tel:[phone] Family History Family Member Type Diagnosis Age At Onset Father Problem (finding) Mother Problem (finding) Immunizations Vaccine Date Status Comments FluZone HD administered Source: New Imm unization Record Pfizer COVID administered Source: New Imm unization Record Influenza, high dose seasonal administere d Source: New Immunization Record Pneumococcal conjugate PCV 13 Oct-31-2019 administere d Source: New Immunization Record Payers Payer name Insurance type Covered constitution party ID Brandy morgan(s) [employer] Medicare Advantage [id number] [employer] Medicare Advantage [id number] Aetna Medicare Advantage [id number] Aetna Medicare Advantage [id number] Social History Type Description Quantity Date Captured Comments Alcohol Use Details Unknown Caffeine Use Details Unknown Tobacco Use Status No Information Smoking Status No Information Sex Female Sexual Orientation Straight or heterosexual Gender Identity Female Chief Complaint And Reason For Visit No Information Reason For Referral Reason For Referral No Information Plan Of Treatment Date Type Action Status Goal Zoster vaccine (). Due on due Goal Influenza vaccine. Due on Oc due Goal Tdap. Due on due Goal Tdap Vaccine. Due on 2024 due Goal Unhealthy drug use screening . Due on due Goal Depression screening. Due on due Goal PRAPARE ASSESSMENT. Due on O due History Of Present Illness Encounter Date Complaint History Of Prese nt Illness EXT Functional Status Date Functional Assessmen t No Information Instructions Date Instruction Additional Infor mation No Information Assessments Type Assessment Date No Information Patient Care Teams Name Effective Dates (start - stop) Status Members No Information
[2025-08-14 22:27] VITALS: BP 141/89; PULSE 85; TEMP 37.1; O2SAT 96; BMI 24.2
--- NOTE | 2025-08-14 22:44 | ED.FALL1 ---
HPI HPI - Fall General Chief Complaint: Fall Stated Complaint: FELL WEDNESDAY, HURT RIGHT KNEE AND RIGHT ANKLE Time Seen by Provider: 08/14/25 22:23 Source: patient Mode of arrival: Wheelchair History of Present Illness HPI Narrative: patient complains of ongoing sciatica pain right buttocks for 4 months. she got out of bed one week ago and loss her balance . slid down to the floor. Now she has increased pain of her right knee and ankle. She did not tell her family about the fall until today. She has pain of her right knee and ankle when she is weight bearing. No pain when she is sitting or lying down. No weakness of her leg. Denies striking her head. No neck pain or upper extremity injury Related Data Home Medications ?Medication ?Instructions ?Recorded ?Confirmed alendronate 70 mg tablet 70 mg PO QWEEK 08/14/25 08/14/25 amlodipine 5 mg tablet 5 mg PO DAILY 08/14/25 08/14/25 atorvastatin 20 mg tablet 20 mg PO DAILY 08/14/25 08/14/25 cyanocobalamin (vitamin B-12) 1,000 mcg PO DAILY 08/14/25 08/14/25 1,000 mcg capsule folic acid 20 mg capsule 20 mg PO DAILY 08/14/25 08/14/25 latanoprost 0.005 % eye drops 1 drp ophthalmic (eye) DAILY 08/14/25 08/14/25 levothyroxine 125 mcg capsule 125 mcg PO DAILY 08/14/25 08/14/25 losartan 100 mg tablet 100 mg PO DAILY 08/14/25 08/14/25 meloxicam 7.5 mg tablet 7.5 mg PO DAILY 08/14/25 08/14/25 methylprednisolone 4 mg tablet 4 mg PO DAILY 08/14/25 08/14/25 (Medrol) multivitamin (Daily Multi-Vitamin 1 tab PO DAILY 08/14/25 08/14/25 tablet) omeprazole 20 mg tablet,delayed 20 mg PO DAILY 08/14/25 08/14/25 release venlafaxine 75 mg tablet 75 mg PO DAILY 08/14/25 08/14/25 Allergies Allergy/AdvReac Type Severity Reaction Status Date / Time No Known Drug Allergies Allergy Verified 08/14/25 22:30 Review of Systems ROS Status of ROS 10 or more systems reviewed and unremarkable except as noted in history and below PFSH [facility] Social History Little interest or pleasure in doing things: not at all Feeling down, depressed, or hopeless: not at all Exam Constitutional Vital Signs, click to edit/add: Last Vital Signs Temp 98.8 F 08/14/25 22:27 Pulse 85 08/14/25 22:27 Resp 18 08/14/25 22:27 BP 141/89 08/14/25 22:27 Pulse Ox 96 08/14/25 22:27 O2 Del Method Room Air 08/14/25 22:27 Common normals: no apparent distress, average body habitus, oriented x3, no limitations, healthy appearing, alert and well nourished HENNE Common normals: normocephalic and head/scalp atraumatic Eye Common normals: EOMs intact bilaterally Neck & C-Spine Common normals: full ROM, supple and no meningeal signs Respiratory Common normals: normal respiratory effort, no retractions, no use of accessory muscles and clear to auscultation bilaterally Cardio Common normals: regular rate, regular rhythm, S1 normal heart sound and S2 normal heart sound GI Common normals: Normal to inspection, nondistended, normoactive bowel sounds present, soft to palpation and non-tender Extremity Common normals: normal to inspection and full ROM Other: exam of right knee, ankle and right hip neg. Focal tenderness right SI joint. exam LLE unremarkable readily performiong ROM of right ankle without any discomfort while laying down Neuro Common normals: oriented x3, CN's II-XII intact bilaterally, moves all extremities and no focal motor deficits Psych Appearance: grossly normal Course Vital Signs Vital signs: Vital Signs Temperature 98.8 F 08/14/25 22:27 Pulse Rate 85 08/14/25 22:27 Respiratory Rate 18 08/14/25 22:27 Blood Pressure 141/89 08/14/25 22:27 Pulse Oximetry 96 08/14/25 22:27 Oxygen Delivery Method Room Air 08/14/25 22:27 Temperature 98.8 F 08/14/25 22:27 Pulse Rate 85 08/14/25 22:27 Respiratory Rate 18 08/14/25 22:27 Blood Pressure 141/89 08/14/25 22:27 Pulse Oximetry 96 08/14/25 22:27 Oxygen Delivery Method Room Air 08/14/25 22:27 MDM - Fall MDM Narrative Medical decision making narrative: patient fell one week ago. Has ongoing sciatica for several months. Complained of increased pain right knee and ankle with weight bearing. Exam of right knee and ankle unremarkable. No other obvious acute bony injury related to her fall. Exam with right SI tenderness. Patient treated for sciatica pain that improved and she was able to ambulate with the walker here in the department. Disscharged home with prednisone and advised to follow up with her doctor Discharge Plan Discharge Chief Complaint: Fall Clinical Impression: Chronic right-sided low back pain with right-sided sciatica Patient Disposition: Home, Self-Care Prescriptions / Home Meds: No Action levothyroxine 125 mcg capsule 125 mcg PO DAILY meloxicam 7.5 mg tablet 7.5 mg PO DAILY amlodipine 5 mg tablet 5 mg PO DAILY omeprazole 20 mg tablet,delayed release (DR/EC) 20 mg PO DAILY methylprednisolone [Medrol] 4 mg tablet 4 mg PO DAILY atorvastatin 20 mg tablet 20 mg PO DAILY venlafaxine 75 mg tablet 75 mg PO DAILY alendronate 70 mg tablet 70 mg PO QWEEK losartan 100 mg tablet 100 mg PO DAILY multivitamin [Daily Multi-Vitamin] Tablet 1 tab PO DAILY folic acid 20 mg capsule 20 mg PO DAILY cyanocobalamin (vitamin B-12) 1,000 mcg capsule 1,000 mcg PO DAILY latanoprost 0.005 % drops 1 drp ophthalmic (eye) DAILY Print Language: Botswanan Instructions: Sciatica (ED) Additional Instructions: follow up with Dr Hodge this week Referrals: MARIAN HODGE [Primary Care Provider, Family Practice] - 1 week
--- OUTSIDE RECORDS SUMMARY | 2025-08-14 22:55 | XMS_ITS | Encounter Summary ---
Author Organization [facility] Address [address] [place] [address] Care Team Providers Care Senior Technical Writer Name Role Phone Vitor Hodge MD Unavailable [phone] Vitor Hodge MD Primary Care Provider [phone] Juani Sommer BLADE OPERATOR Unavailable [phone] Reason for Visit * ReasonCommentsMed Refill Encounter Details DateTypeDepartmentCare Team (Latest Contact Info)Joylmpsmimx19/19/2025Refill [facility] [address] [place] [id number] Vitor Hodge MD [address] [place] [address] Primary osteoarthritis of hand, unspecified laterality Social History Tobacco UseTypesPacks/DayYears UsedDateSmoking Tobacco: FormerCigarettesQuit: 03/13/1993Passive Smoke Exposure: PastSmokeless Tobacco: NeverAlcohol Use Standard Drinks/WeekCommentsYes1 (1 standard drink = 0.6 oz pure alcohol) Humiliation, Afraid, Rape, and Kick questionnaireAnswerDate RecordedWithin the last year, have you been afraid of your partner or ex-partner?Patient declined 08/27/2023Within the last year, have you been humiliated or emotionally abused in other ways by your partner or ex-partner?Patient ysvkgnba98/15/2023Within the last year, have you been kicked, hit, slapped, or otherwise physically hurt by your partner or ex-partner?Patient hulyqxvl26/15/2023Within the last year, have you been raped or forced to have any kind of sexual activity by your partner or ex-partner?Patient rdpiwcya18/15/2023Social Connection and Isolation PanelAnswer Date RecordedIn a typical week, how many times do you talk on the phone with family, friends, or neighbors?Once a week08/27/2023How often do you get together with friends or relatives?More than three times a week08/27/2023How often do you attend sikh or baptist services?Never08/27/2023o you belong to any clubs or organizations such as sikh groups, unions, fraVecast or athletic groups, or school groups?No08/27/2023How often do you attend meetings of the clubs or organizations you belong to?Never08/27/2023re you , , , , never , or living with a partner?Poykhvpu74/15/2023UDIT-C AnswerDate RecordedQ1: How often do you have a drink containing alcohol?Never 03/12/2023Q2: How many drinks containing alcohol do you have on a typical day when you are drinking?Patient does not drink03/12/2023Q3: How often do you have six or more drinks on one occasion?Never03/12/2023Overall Financial Resource Strain (CARDIA)AnswerDate RecordedHow hard is it for you to pay for the very basics like food, housing, medical care, and heating?Not very hard08/27/2023 PHQ-2AnswerDate RecordedPatient Health Questionnaire-2 [id number] [place] [facility] Occup[facility] Health - Occupational Stress QuestionnaireAnswerDate RecordedDo you feel stress - tense, restless, nervous, or anxious, or unable to sleep at night because yourmind is troubled all the time - these days?Not at all 08/27/2023Hunger Vital SignAnswerDate RecordedWithin the past 12 months, you worried that your food would run out before you got the money to buymore.Never true08/27/2023Within the past 12 months, the food you bought just didn't last and you didn't have money to get more.Never true3PRAPARE - TransportationAnswerDate RecordedIn the past 12 months, has lack of transportation kept you from medical appointments or from getting medications?No 08/27/2023In the past 12 months, has lack of transportation kept you from meetings, work, or from getting things needed for daily living?No08/27/2023 Housing Stability Vital SignAnswerDate RecordedIn the last 12 months, was there a time when you were not able to pay the mortgage or rent on time?No08/27/2023In the last 12 months, how many places have you lived?In the last 12 months, was there a time when you did not have a steady place to sleep or slept in ashelter (including now)?No08/27/2023CommentsNoSex and Gender InformationValueDate RecordedSex Assigned at BirthNot on fileLegal SexFemale 11/25/2022 6:37 PM EDTGender IdentityNot on fileSexual OrientationNot on file documented as of this encounter Plan of Treatment DateTypeDepartmentCare Team (Latest Contact Info)Tkazbyeawsz32/15/2025 10:30 AM ESTClinical Support [facility] [address] [place] [address] Pauline Vicente MD [address] [place] [address] 10/16/2025 2:00 PM ESTOffice Visit [facility] [address] [place] [id number] Vitor Hodge MD [address] [place] [address] documented as of this encounter Visit Diagnoses Diagnosis Primary osteoarthritis of hand, unspecified laterality documented in this encounter Additional Health Concerns AssessmentNoted TimePHQ-9 Depression Total Score: 11:00 AM EST documented as of this encounter Care Teams Team MemberRelationshipSpecialtyStart DateEnd Date Vitor Hodge MD [address] [place] [address] PCP - [employer]09/13/20 Vitor Hodge MD [address] [place] [address] PCP - GeneralFamely Medicine02/19/23 Juani Sommer NP [address] [place] [address] Nurse Pract[facility]er[facility] Medicine02/24/24documented as of this encounter
--- OUTSIDE RECORDS SUMMARY | 2025-08-14 22:55 | XMS_ITS | Clinical Summary ---
Author Organization [facility] Address [address] [place] [address] Care Team Providers Care Milk Receiver Name Role Phone Vitor Hodge MD Unavailable [phone] Vitor Hodge MD Primary Care Provider [phone] Juani Sommer RESEARCH INSTRUCTOR Unavailable [phone] Allergies No known active allergies Medications MedicationSigDispense QuantityRefillsLast FilledStart DateEnd DateStatus Cyanocobalamin (Vitamin B12) 1000 MCG tablet controlled-release 1 (one) time each day at the same time.Active latanoprost (Xalatan) 0.005 % ophthalmic solution 1 (one) time each day at the same time.Active Multiple Vitamin (multivitamin) tablet Take 1 tablet by mouth DailyActive FOLIC ACID PO Take by mouthActive Misc. Devices misc Indications:Arthritis of left kneeDispense: Front Wheeled walker use 90 days. Ht: 5'4.5 Weight: 149lbs Dx. Left knee arthritis M17.12 1 Units 4Active losartan (Cozaar) 100 MG tablet Indications:Hypertension, unspecified typeTAKE 1 TABLET DAILY 90 tablet 5Active alendronate (Fosamax) 70 MG tablet Indications:Primary osteoarthritis of hand, unspecified laterality1 tablet Orally 1 per week on Wednesday for 90 days 15 tablet 5Active venlafaxine (Effexor) 75 MG tablet Indications:Depression, unspecified depression typeTake 1 tablet (75 mg) by mouth 1 (one) time each day at the same time 90 tablet 5Active atorvastatin (Lipitor) 20 MG tablet Indications:Hyperlipidemia, unspecified hyperlipidemia typeTake 1 tablet (20 mg) by mouth Daily 90 tablet 515Active methylPREDNISolone (Medrol Dospak) 4 MG tablets Indications:Cervical radiculopathy at S2Pswzwk schedule on package instructions 21 tablet 5Active omeprazole (PriLOSEC) [address] capsule Indications:Gastroesophageal reflux disease with esophagitis without hemorrhage Take 1 capsule (20 mg) by mouth Daily 90 capsule 5Active methylPREDNISolone (Medrol Dospak) 4 MG tablets Indications:Sciatica associated with disorder of lumbar spineFollow schedule on package instructions 21 tablet 5Active amLODIPine (Norvasc) 5 MG tablet Indications:Hypertension, unspecified typeTake 1 tablet (5 mg) by mouth Daily 90 tablet 5Active meloxicam (Mobic) 7.5 MG tablet Indications:Other chronic painTAKE 1 TABLET DAILY 90 tablet 5Active levothyroxine (Synthroid, Levoxyl) 125 MCG tablet Indications:Hypothyroidism (acquired)Take 1 tablet (125 mcg) by mouth in the morning. Take before meals. 90 tablet 110504/6Active Active Problems ProblemNoted DateDiagnosed DateS/P total knee replacement, left07/24/2024 Difficulty isjihml7307/24/2024Falling vnocbrpl03/11/2023Major depressive disorder, single episode, fqzhmzykzrp56/11/2023Osteoarthritis of left knee03/23/2023Other chronic pain03/23/2023cute postoperative pain of left knee03/23/2023ilateral age-related macular tohymxmtxzhf67/18/2020Vitamin B12 mtdsnznakz24/26/2019Lipoma of back11/22/2018Non-cjonvx2807/25/2018Weakness of both legs07/25/2018 Hydrocephalus, cxmaoajmficdp42/17/2018Blindness of left eye03/09/2017Difficulty swallowing wdewsb7703/09/2017Exudative age-related macular degeneration of left eye03/04/20177977Itmxufx92/19/2017Osteoarthritis of multiple kzckkv5312/30/2016Vitamin D qminqehkzw79/19/2017Gastroesophageal reflux vygftni5209/24/2016Primary ivamiohvcvhs58/21/2016Memory loss07/25/20152116Izvnttlxpm53/12/2015Hyperlipidemia 07/25/20153206Cuwvlxhnwkdlxl41/12/7441Oapenmsdrcbd25/12/2015Pure wluavqeqwebvpuizdkxc21/12/2015 Resolved Problems ProblemNoted DateDiagnosed DateResolved VqxuUxmebrc16Sinusitis History of fallMacular degeneration Overweight with body mass index (BMI) 25.0-29.9109/24/2017 03/23/2023Ventricular shunt in placeMixed anxiety and depressive yoredwnm08 Encounters DateTypeDepartmentCare LuvfZthesfpknmp97/27/2025Refill [facility] [address] [place] [address] Vitor Hodge MD Hyperlipidemia, unspecified hyperlipidemia type08/01/2025Refill [facility] [address] [place] [address] Vitor Hodge MD Primary osteoarthritis of hand, unspecified xeheblofqr83/13/2025 10:45 AM EST Clinical Support [facility] [address] [place] [address] Pauline Vicente MD Macular Auirbtikdphk04/13/2025amboo flowsheet [facility] [address] [place] [address] Pauline Vicente MD 07/26/20257144Wuxero26/10/2025Refill [facility] [address] [place] [address] Vitor Hodge MD Depression, unspecified depression type07/13/2025Refill [facility] [address] [place] [address] Vitor Hodge MD Hypertension, unspecified type07/10/2025Telephone [facility] [address] [place] [address] Linda Silva MA 07/09/2025Refill [facility] [address] [place] [address] Linda Silva MA Hypothyroidism (acquired)06/29/2025Refill [facility] [address] [place] [address] Vitor Hodge MD Other chronic pain06/14/2025bstract [facility] [address] [place] [address] Vitor Hodge MD 06/04/2025Refill [facility] [address] [place] [address] Zoe Beard MA Hypertension, unspecified type ; Other chronic pain05/31/2025 2:00 PM EDTFollow-Up [facility] [address] [place] [address] Vitor Hodge MD Sciatica associated with disorder of lumbar spine (Primary Dx); Gastroesophageal reflux disease with esophagitis without bfhwoynkqu33/18/2025 Ixutpn3205/24/2025 11:00 AM EDTClinical Support [facility] [address] [place] [address] Pauline Vicente MD Retinal Jiskglycn50/11/2025Refill [facility] [address] [place] [address] Zoe Beard MA Gastroesophageal reflux disease with esophagitis without islijgzstt73/11/2025 Bamboo flowsheet [facility] [address] [place] [address] Pauline Vicente MD 05/24/20257380Tzczcw67/04/2025Refill [facility] [address] [place] [address] Vitor Hodge MD Gastroesophageal reflux disease with esophagitis without hemorrhagefrom Last 3 Months Immunizations ImmunizationAdministration DatesNext DueInfluenza, High Dose Seasonal, Preservative Free06/09/2022,07/08/2021,07/13/2019,06/01/2018,04/29/2017 Influenza, High-dose Seasonal, Quadrivalent, Preservative Free07/12/2019 Influenza, Split (incl. purified surface antigen)06/26/2014Influenza, injectable, ptceqhiatwtu24/09/2024,08/11/2023Influenza, injectable, quadrivalent, preservative free05/30/2020Influenza, seasonal, injectable, preservative free05/30/2015Influenza, seasonal, intradermal, preservative free 07/01/2016Moderna Bivalent Booster Wlxgbajaclj09/02/2022Pfizer Purple Cap SARS-CoV-2 Ulngiswjfwc62/23/2022Pneumococcal Conjugate PCV 131, 05/30/2015Pneumococcal Polysaccharide MPHJ5067 Social History Tobacco UseTypesPacks/DayYears UsedDateSmoking Tobacco: FormerCigarettesQuit: 03/13/1993Passive Smoke Exposure: PastSmokeless Tobacco: Never Tobacco Cessation:Counseling Given: No Alcohol UseStandard Drinks/WeekCommentsYes1 (1 standard drink = 0.6 oz pure alcohol)Humiliation, Afraid, Rape, and Kick questionnaireAnswerDate Recorded Within the last year, have you been afraid of your partner or ex-partner?Patient flvsaqlt58/15/2023Within the last year, have you been humiliated or emotionally abused in other ways by your partner or ex-partner?Patient fzmxxacr64/15/2023 Within the last year, have you been kicked, hit, slapped, or otherwise physically hurt by your partner or ex-partner?Patient raxcmdxj77/15/2023Within the last year, have you been raped or forced to have any kind of sexual activity by your partner or ex-partner?Patient jxsehtvs78/15/2023Social Connection and Isolation PanelAnswerDate RecordedIn a typical week, how many times do you talk on the phone with family, friends, or neighbors?Once a week08/27/2023How often do you get together with friends or relatives?More than three times a week 08/27/2023How often do you attend evangelical or christian services?Never08/27/2023o you belong to any clubs or organizations such as evangelical groups, unions, fraLendLayer or athletic groups, or school groups?No08/27/2023How often do you attend meetings of the clubs or organizations you belong to?Never08/27/2023re you , , , , never , or living with a partner?Glgrxgje99/15/2023UDIT-CAnswerDate RecordedQ1: How often do you have a drink containing alcohol?Never03/12/2023Q2: How many drinks containing alcohol do you have on a typical day when you are drinking?Patient does not drink 03/12/2023Q3: How often do you have six or more drinks on one occasion?Never 03/12/2023Overall Financial Resource Strain (CARDIA)AnswerDate RecordedHow hard is it for you to pay for the very basics like food, housing, medical care, and heating?Not very hard08/27/2023HQ-2AnswerDate RecordedPatient Health Questionnaire-2 Eklkw462Finmountain west medical center [place] [facility] - Occupational Stress QuestionnaireAnswerDate RecordedDo you feel stress - tense, restless, nervous, or anxious, or unable to sleep at night because yourmind is troubled all the time - these days?Not at all08/27/2023Hunger Vital SignAnswer Date RecordedWithin the past 12 months, you worried that your food would run out before you got the money to buymore.Never true08/27/2023Within the past 12 months, the food you bought just didn't last and you didn't have money to get more.Never true08/27/2023RAPARE - TransportationAnswerDate RecordedIn the past 12 months, has lack of transportation kept you from medical appointments or from getting medications?No08/27/2023In the past 12 months, has lack of transportation kept you from meetings, work, or from getting things needed for daily living?No08/27/2023Housing Stability Vital SignAnswerDate RecordedIn the last 12 months, was there a time when you were not able to pay the mortgage or rent on time?No08/27/2023In the last 12 months, how many places have you lived?1 08/27/2023In the last 12 months, was there a time when you did not have a steady place to sleep or slept in [facility] (including now)?No08/27/2023Comments NoSex and Gender InformationValueDate RecordedSex Assigned at BirthNot on file Legal MvwYcoxya60/15/2023 6:37 PM EDTGender IdentityNot on fileSexual OrientationNot on file Last Filed Vital Signs Vital SignReadingTime TakenCommentsBlood Idfxwbpv960/6809 1:52 PM EDT Hdpsw311505/31/2025 1:52 PM LLTNxjholrxqut80.6 ??C (97.9 ??F)05/31/2025 1:52 PM EDTRespiratory Wats499210/12/2024 11:23 AM ESTOxygen Ymasszvheq21%05/31/2025 1:52 PM EDTInhaled Oxygen Concentration--Jqlhkj18.2 kg (157 lb)05/31/2025 1:52 PM EDT Vflnek478.8 cm (5' 4.5 )05/31/2025 1:52 PM EDTBody Mass Index26.53005/31/2025 1:52 PM EDT Plan of Treatment DateTypeDepartmentCare Team (Latest Contact Info)Dqhsphrxjin56/15/2025 10:30 AM ESTClinical Support [facility] [address] [place] [address] Pauline Vicente MD [address] [place] [address] 10/16/2025 2:00 PM ESTOffice Visit [facility] [place] [facility] [address] [place] [address] Vitor Hodge MD [address] [place] [address] Health MaintenanceDue DateLast DoneCommentsCOVID-19 Vaccine ( season) , 02/02/2022, 06/28/2021, Additional history existsMedicare Annual Wellness (AWV)6010/12/2024, 08/23/2023, 08/17/2022, Additional history existsPneumococcal Vaccine: 65+ PvnbhGjmgvxhpn79/31/2019, 06/02/2016, 05/30/2015Influenza KtconjtEugfrgrdl88/03/2025, 06/14/2025, 06/21/2024, Additional history exists Procedures Procedure NamePriorityDate/TimeAssociated DiagnosisCommentsINTRAVITREAL INJECTION, PHARMACOLOGIC AGENT - OD - RIGHT DAHXsyqzfk82/13/2025 11:16 AM EST Exudative age-related macular degeneration of right eye with active choroidal neovascularization (HCC) OCT, RETINA - OU - BOTH UBAFCrxodmz39/13/2025 11:15 AM EST Exudative age-related macular degeneration of right eye with active choroidal neovascularization (HCC) INTRAVITREAL INJECTION, PHARMACOLOGIC AGENT - OD - RIGHT GFLJucwdjr15/11/2025 11:47 AM EDT Exudative age-related macular degeneration of right eye with active choroidal neovascularization (HCC) OCT, RETINA - OU - BOTH ZJOIBtjyvve96/11/2025 11:44 AM EDT Exudative age-related macular degeneration of right eye with active choroidal neovascularization (HCC) from Last 3 Months Results * Intravitreal Injection, Pharmacologic Agent - OD - Right Eye (07/26/2025 11:16 AM EST)Anatomical RegionLateralityModalityHeadOther Narrative 07/26/2025 11:16 AM EST Time Out 07/26/2025. 11:15 AM. Confirmed correct patient, procedure, site, and patient consented. Anesthesia Topical anesthesia was used. Anesthetic medications included Lidocaine 2%, Proparacaine 0.5%. Procedure Preparation included 5% betadine to ocular surface, eyelid speculum. A 30 gauge needle was used. Injection: 2 mg aflibercept 2 MG/0.05ML ??Route: Intravitreal, Site: Right Eye ??[facility]: 75281-863-72, Lot: [id number], Expiration date: 03/19/2026, Waste: 0 mL Post-op Post injection exam found visual acuity of at least counting fingers, no retinal detachment, perfused optic nerve. The patient tolerated the procedure well. There were no complications. The patient received written and verbal post procedure care education. Post injection medications were not given. Notes Intravitreal antiVEGF Treatment: Risks, benefits and alternatives were discussed for Intravitreal injection with the prescribed antiVEGF agent. ?? With intraocular surgery, there is potential for direct retinal damage through retinal or RPE tear, or infection, with subsequent vision loss. ?? Informative Intravitreal pamphlet provided as well as an OMIC consent. ??Of course, the treatment may fail to accomplish the overall therapeutic objectives, which is to stall or decrease the amount of retinal edema / bleeding, and therefore stall or improve vision loss. Intravitreal Anti-VEGF: ??Consent was obtained and questions answered. ?? Operative eye was identified, receiving topical proparacaine, 5% betadine, and 2% xylocaine jelly. ??A lid speculum was placed and the inferotemp. injection site received additional anesthetic with a proparacaine soaked cotton swab. ??Using calipers (set at 3.5mm for pseudo and 4mm for phakic), the inferotemp. limbus was measured, sclera marked and 2 additional drops of betadine placed. ??Avoiding any talking to avoid contamination, intravitreal injection was carried out without difficulty. Any residual amount of medication was discarded appropriately. The patient tolerated the procedure well and instructed to call with increased pain, redness, decreased vision or concerns. ?? Authorizing ProviderResult TypeResult StatusPauline Vicente MDTENET ST. [facility] PROCEDURESFinal Result * OCT, Retina - OU - Both Eyes (07/26/2025 11:15 AM EST)Anatomical Region LateralityModalityHeadOptical Coherence Tomography Narrative 07/26/2025 11:15 AM EST Right Eye Quality was good. Scan locations included subfoveal, juxtafoveal, extrafoveal. Progression has been stable. Findings include abnormal foveal contour, choroidal neovascular membrane. Notes Scans were reviewed and compared to previous scan Choroidal neovascular membrane (CNVM) remains stable without any signs of new bleeding or extension of retinal pigment epithelium detachment (RPED) Opposite eye with dry amd ?? Authorizing ProviderResult TypeResult StatusKerdu Vicente MDOPHTH TOMOGRAPHY Final Result * Intravitreal Injection, Pharmacologic Agent - OD - Right Eye (05/24/2025 11:47 AM EDT)Anatomical RegionLateralityModalityHeadOther Narrative 05/24/2025 11:47 AM EDT Time Out 05/24/2025. 11:47 AM. Confirmed correct patient, procedure, site, and patient consented. Anesthesia Topical anesthesia was used. Anesthetic medications included Lidocaine 2%, Proparacaine 0.5%. Procedure Preparation included 5% betadine to ocular surface, eyelid speculum. A 30 gauge needle was used. Injection: 2 mg aflibercept 2 MG/0.05ML ??Route: Intravitreal, Site: Right Eye ??[facility]: 18298-294-34, Lot: [id number], Expiration date: 06/22/2026, Waste: 0 mL Post-op Post injection exam found visual acuity of at least counting fingers, no retinal detachment, perfused optic nerve. The patient tolerated the procedure well. There were no complications. The patient received written and verbal post procedure care education. Post injection medications were not given. Notes Intravitreal antiVEGF Treatment: Risks, benefits and alternatives were discussed for Intravitreal injection with the prescribed antiVEGF agent. ?? With intraocular surgery, there is potential for direct retinal damage through retinal or RPE tear, or infection, with subsequent vision loss. ?? Informative Intravitreal pamphlet provided as well as an OMIC consent. ??Of course, the treatment may fail to accomplish the overall therapeutic objectives, which is to stall or decrease the amount of retinal edema / bleeding, and therefore stall or improve vision loss. Intravitreal Anti-VEGF: ??Consent was obtained and questions answered. ?? Operative eye was identified, receiving topical proparacaine, 5% betadine, and 2% xylocaine jelly. ??A lid speculum was placed and the inferotemp. injection site received additional anesthetic with a proparacaine soaked cotton swab. ??Using calipers (set at 3.5mm for pseudo and 4mm for phakic), the inferotemp. limbus was measured, sclera marked and 2 additional drops of betadine placed. ??Avoiding any talking to avoid contamination, intravitreal injection was carried out without difficulty. Any residual amount of medication was discarded appropriately. The patient tolerated the procedure well and instructed to call with increased pain, redness, decreased vision or concerns. ?? [id number] Authorizing ProviderResult TypeResult StatusPauline Vicente MDTENET ST. [facility] PROCEDURESFinal Result * OCT, Retina - OU - Both Eyes (05/24/2025 11:44 AM EDT)Anatomical Region LateralityModalityHeadOptical Coherence Tomography Narrative 05/24/2025 11:44 AM EDT Right Eye Quality was good. Scan locations included subfoveal, juxtafoveal, extrafoveal. Progression has been stable. Findings include choroidal neovascular membrane. Notes Scans were reviewed and compared to previous scan Choroidal neovascular membrane (CNVM) remains stable without any signs of new bleeding or extension of retinal pigment epithelium detachment (RPED) Opposite eye with dry amd ?? Authorizing ProviderResult TypeResult StatusPauline Vicente MDTENET ST[facility] TOMOGRAPHY Final Result from Last 3 Months Insurance Care Teams Team MemberRelationshipSpecialtyStart DateEnd Date Vitor Hodge MD [address] [place] [place] [address] PCP - [employer]09/13/20 Vitor Hodge MD [address] [place] [address] [facility]CP - [facility] Juani Sommer NP [address] [place] [address] Nurse PractitionerArch[facility]02/24/24
--- OUTSIDE RECORDS SUMMARY | 2025-08-14 22:55 | XMS_ITS | Encounter Summary ---
Author Organization [facility] Address [address] [place] [address] Care Team Providers Care Belt Molder Name Role Phone Vitor Hodge MD Unavailable [phone] Vitor Hodge MD Primary Care Provider [phone] Juani Sommer ADVERTISING REP Unavailable [phone] Reason for Visit * ReasonCommentsMed Refill Encounter Details DateTypeDepartmentCare Team (Latest Contact Info)Twbeitphbxl62/27/2025Refill [facility] [address] [place] [address] Vitor Hodge MD [address] [place] [address] Hyperlipidemia, unspecified hyperlipidemia type Social History Tobacco UseTypesPacks/DayYears UsedDateSmoking Tobacco: FormerCigarettesQuit: 03/13/1993Passive Smoke Exposure: PastSmokeless Tobacco: NeverAlcohol Use Standard Drinks/WeekCommentsYes1 (1 standard drink = 0.6 oz pure alcohol) Humiliation, Afraid, Rape, and Kick questionnaireAnswerDate RecordedWithin the last year, have you been afraid of your partner or ex-partner?Patient declined 08/27/2023Within the last year, have you been humiliated or emotionally abused in other ways by your partner or ex-partner?Patient fxomveis91/15/2023Within the last year, have you been kicked, hit, slapped, or otherwise physically hurt by your partner or ex-partner?Patient kdzibfwx26/15/2023Within the last year, have you been raped or forced to have any kind of sexual activity by your partner or ex-partner?Patient xbvrygji75/15/2023Social Connection and Isolation PanelAnswer Date RecordedIn a typical week, how many times do you talk on the phone with family, friends, or neighbors?Once a week08/27/2023How often do you get together with friends or relatives?More than three times a week08/27/2023How often do you attend spiritism or nondenominational services?Never08/27/2023o you belong to any clubs or organizations such as spiritism groups, unions, fraternal or athletic groups, or school groups?No08/27/2023How often do you attend meetings of the clubs or organizations you belong to?Never08/27/2023re you , , , , never , or living with a partner?Pztmumnj12/15/2023UDIT-C AnswerDate RecordedQ1: How often do you have [...] heating?Not very hard08/27/2023 PHQ-2AnswerDate RecordedPatient Health Questionnaire-2 Vjbnm690Finmountain view hospital [place] of Occupational Health - Occupational Stress QuestionnaireAnswerDate [...] Plan of Treatment DateTypeDepartmentCare Team (Latest Contact Info)Ksmvymropcm02/15/2025 10:30 AM ESTClinical Support [facility] [address] [place] [address] Pauline Vicente MD [address] [place] [address] 10/16/2025 2:00 PM ESTOffice Visit [facility] [address] [place] [address] Vitor Hodge MD [address] [place] [address] documented as of this encounter Visit Diagnoses Diagnosis Hyperlipidemia, unspecified hyperlipidemia type documented in this encounter Additional Health Concerns AssessmentNoted TimePHQ-9 Depression Total Score: 11:00 AM EST documented as of this encounter Care Teams Team MemberRelationshipSpecialtyStart DateEnd Date Vitor Hodge MD [address] [place] [address] PCP - [employer]09/13/20 Vitor Hodge MD [address] [place] [address] PCP - GeneralFagaly Medicine02/19/23 Juani Sommer NP [address] [place] [address] Nurse Pract[facility]er[facility]02/24/24documented as of this encounter
[2025-08-14] MEDS: MAGNESIUM SULFATE IN WATER 2 GM/50 ML PREMIX IV (23:02)
[2025-08-14] MEDS: METHYLPREDNISOLONE SOD SUCC PF 125 MG/2 ML VIAL IVP (23:02)
[2025-08-14] MEDS: KETOROLAC TROMETHAMINE 30 MG/ML VIAL IVP (23:02)
[2025-08-15 01:50] LABS: Glucose Urine UA NEGATIVE (NEGATIVE)
[2025-08-15 01:58] LABS: Cast Seen? NONE SEEN #/LPF (NONE SEEN); Crystals Seen? Seen #/HPF (None Seen); Urine Culture Indicated NO
== END 2025-08-15 01:40 | disposition home or self-care (01) ==
PROVIDERS: Emergency Provider Internal Medicine; PCP Family Medicine
DX: M54.41 Lumbago with sciatica, right side (principal); G89.29 Other chronic pain
CPT/HCPCS: 81001; 96365; 96366; 96375; 99284; J1885; J2919; J3475